=== PATIENT | female | born 1965 | race Hispanic/Latino ===

== ENCOUNTER 2018-05-30 15:42 | Inpatient (IN) | payer MEDICAID ==
--- NOTE | 2018-05-30 17:18 | C.PDOC ---
History Of Present Illness 53 year old female presents to the ER with a complaint of leg swelling and SOB with exertion for the past 3 months. Patient has not PMD and is not on any medications at this time. Denies chest pain, nausea, vomiting, or abdominal pain. Time Seen by Provider: 05/30/18 17:05 Chief Complaint (Nursing): Shortness Of Breath History Per: Patient History/Exam Limitations: no limitations Onset/Duration Of Symptoms: Days Current Symptoms Are (Timing): Still Present Exacerbating Factor(s): Exertion Associated Symptoms: denies: Chest Pain, Other (Nausea, vomiting) Recent travel outside of the [place]: No Past Medical History Reviewed: Historical Data, Nursing Documentation, Vital Signs Vital Signs: Last Vital Signs Temp 98 F 05/31/18 23:41 Pulse 93 H 05/31/18 23:41 Resp 20 05/31/18 23:41 BP 110/71 05/31/18 23:41 Pulse Ox 98 06/01/18 04:00 Surgical History: No Surg Hx Family History: States: Unknown Family Hx - Social History Hx Alcohol Use: Yes Hx Substance Use: No Review Of Systems Except As Marked, All Systems Reviewed And Found Negative. Respiratory: Positive for: Shortness of Breath, SOB with Excertion Physical Exam - Physical Exam Appears: Non-toxic Skin: Normal Color, Warm, Dry Head: Atraumatic, Normacephalic Eye(s): bilateral: Normal Inspection Oral Mucosa: Moist Neck: Normal, Supple Chest: Symmetrical, No Tenderness Cardiovascular: Rhythm Regular Respiratory: Decreased Breath Sounds, No Rales, No Rhonchi, No Wheezing Gastrointestinal/Abdominal: Soft, No Tenderness Extremity: Normal ROM (x4), Pedal Edema (+4 pitting), Capillary Refill (<2 seconds) Pulses: Left Dorsalis Pedis: Normal, Right Dorsalis Pedis: Normal Neurological/Psych: Oriented x3, Normal Speech, Normal Motor, Normal Sensation Gait: Steady ED Course And Treatment - Laboratory Results Result Diagrams: 05/31/18 07:12 05/31/18 07:10 O2 Sat by Pulse Oximetry: 90 (Room air) Medical Decision Making Medical Decision Making: Assessment: SOB Plan: * EKG * Blood work * CXR Case discussed with Dr. Shaw who will accept patient for admission to obs- telemetry. Disposition Discussed With : Kamar Shaw Doctor Will See Patient In The: Hospital Counseled Patient/Family Regarding: Studies Performed, Diagnosis - Disposition Disposition: HOSPITALIZED Disposition Time: 18:36 Condition: FAIR - Clinical Impression Clinical Impression: CHF (congestive heart failure) - Scribe Statement The provider has reviewed the documentation as recorded by the Scribe Catracho Dotson All medical record entries made by the Scribe were at my direction and personally dictated by me. I have reviewed the chart and agree that the record accurately reflects my personal performance of the history, physical exam, medical decision making, and the department course for this patient. I have also personally directed, reviewed, and agree with the discharge instructions and disposition.
--- NOTE | 2018-05-30 17:49 | RAD ---
Date of service: 05/30/2018 HISTORY: cough COMPARISON: No prior. TECHNIQUE: Chest PA and lateral FINDINGS: LUNGS: No active pulmonary disease. PLEURA: No significant pleural effusion identified. No pneumothorax apparent. CARDIOVASCULAR: Atherosclerotic aortic calcifications. Cardiomediastinal silhouette enlarged. OSSEOUS STRUCTURES: Degenerative changes. VISUALIZED UPPER ABDOMEN: Normal. OTHER FINDINGS: None. IMPRESSION: No active disease.
[2018-05-30 17:51] LABS: BASO # 0.1 K/uL (0.0-0.2); BASO % 0.6 % (0.0-2.0); EOS # 0.1 K/uL (0.0-0.7); EOS % 1.2 % (0.0-4.0); HEMOGLOBIN 10.2 g/dL (11.0-16.0); LYMPH # 1.7 K/uL (1.0-4.3); LYMPH % 18.5 % (20.0-40.0); MEAN CELL VOLUME 67.1 fL (81.0-99.0); MEAN CORPUSCULAR HGB CONC 28.3 g/dL (33.0-37.0); MEAN PLATELET VOLUME 8.9 fL (7.2-11.7); MONO % 11.1 % (0.0-10.0); NEUT # 6.3 K/uL (1.8-7.0); NEUT % 68.6 % (50.0-75.0); NRBC % 0.1 % (0.0-2.0); RBC 5.36 Mil/uL (3.80-5.20); RED CELL DISTRIBUTION WIDTH 23.1 % (11.5-14.5); WHITE BLOOD COUNT 9.1 K/uL (4.8-10.8)
[2018-05-30 18:08] LABS: ALB/GLOB RATIO 1.2 (1.0-2.1); ALBUMIN 3.6 g/dL (3.5-5.0); ALT/SGPT 31 U/L (9-52); AST/SGOT 34 U/L (14-36); BLOOD UREA NITROGEN 5 mg/dL (7-17); CALCIUM 8.7 mg/dl (8.6-10.4); GFR AFRICAN-AMERICAN > 60; GFR NON-AFRICAN AMERICAN > 60
[2018-05-30 18:14] LABS: B-TYPE NATRIURETIC PEPTIDE 4960 pg/mL (0-900)
[2018-05-30 18:27] VITALS: BMI 32.4
--- NOTE | 2018-05-30 19:07 | CP.PCM.HP ---
<Deedee Quintero - Last Filed: 05/31/18 00:28> History of Present Illness - History of Present Illness History of Present Illness: Medicine Note for Hospitalist Service CC: shortness of breath HPI: This is a 53 year old female with PMHx of Tobacco use and Alcohol use who presents to the ED with gradual, progressive shortness of breath, fatigue, and bilateral lower extremity swelling x 3-4 months. Patient reports she was able to ambulate without assistance or issues to [place] prior to the onset of her symptoms. She gradually noticed she became short of breath when ambulating more than 1 block, walking up 1/2 a flight of stairs, and when she exerts herself. She denied any orthopnea but admits she sleeps inclined or on her side and to daytime sleepiness and fatigue. Patient has not seen a doctor in > 10 years, no prior cardiac workup. Denied any associated fever, chills, headache, chest pain , abdominal pain, n/v/d/c, urinary symptoms, numbness, tingling, or decrease in sensation in upper or lower extremity swelling. PMD - None PMHx: none PSHx: Cesarian section x4 Meds: Denied All: NKDA SHx: (+) 30 year history, 1-2 packs/day, (+) 12 year history of 750mL vodka consumption daily, recently cut down to 1.5 pints per day, starts drinking at 4pm, denied any illicit drug use FamHx: Denied any cardiac, stroke, or malignancies HCM: Denied any recent cervical, breast (> 10 years) or colon cancer screening ( never) Present on Admission - Present on Admission Any Indicators Present on Admission: No Past Patient History - Past Social History Smoking Status: Heavy Smoker > 10 Cigarettes Daily - PSYCHIATRIC Hx Substance Use: No - SURGICAL HISTORY Hx Surgeries: No Meds Allergies/Adverse Reactions: Allergies Allergy/AdvReac Type Severity Reaction Status Date / Time No Known Allergies Allergy Verified 05/30/18 16:01 Physical Exam - Constitutional Appears: No Acute Distress - Head Exam Head Exam: ATRAUMATIC, NORMAL INSPECTION, NORMOCEPHALIC - Eye Exam Eye Exam: EOMI, Normal appearance, PERRL. absent: Nystagmus, Scleral icterus Pupil Exam: NORMAL ACCOMODATION - ENT Exam ENT Exam: Mucous Membranes Moist Additional comments: poor dentition - Neck Exam Neck exam: Positive for: Normal Inspection - Respiratory Exam Respiratory Exam: Decreased Breath Sounds, Wheezes (faint wheezing heard RLL ). absent: Accessory Muscle Use, Chest Wall Tenderness, Rales, Rhonchi, Stridor - Cardiovascular Exam Cardiovascular Exam: REGULAR RHYTHM, Systolic Murmur - GI/Abdominal Exam GI & Abdominal Exam: Normal Bowel Sounds, Soft. absent: Distended, Firm, Guarding, Mass, Organomegaly, Rebound, Tenderness Additional comments: no ascites noted on exam - Extremities Exam Extremities exam: Positive for: normal capillary refill, pedal edema (+1 pitting edema bilaterally up to directly below the knee ), pedal pulses present. Negative for: tenderness Additional comments: not TTP, not warm - Back Exam Back exam: NORMAL INSPECTION. absent: CVA tenderness (L), CVA tenderness (R), paraspinal tenderness - Neurological Exam Neurological exam: Alert, CN II-XII Intact, Oriented x3 - Psychiatric Exam Psychiatric exam: Normal Affect, Normal Mood - Skin Skin Exam: Dry, Intact, Normal Color, Warm Results - Vital Signs Recent Vital Signs: Last Vital Signs Temp 98.4 F 05/30/18 15:57 Pulse 102 H 05/30/18 18:29 Resp 26 H 05/30/18 18:29 BP 150/73 05/30/18 17:58 Pulse Ox 90 L 05/30/18 18:46 - Labs Result Diagrams: 05/30/18 17:43 05/30/18 17:43 Labs: Laboratory Results - last 24 hr 05/30/18 05/30/18 17:43 17:43 WBC 9.1 RBC 5.36 H Hgb 10.2 L Hct 35.9 MCV 67.1 L MCH 19.0 L MCHC 28.3 L RDW 23.1 H Plt Count 221 MPV 8.9 Neut % (Auto) 68.6 Lymph % (Auto) 18.5 L [place] % (Auto) 11.1 H Eos % (Auto) 1.2 Baso % (Auto) 0.6 Neut # (Auto) 6.3 Lymph # (Auto) 1.7 [place] # (Auto) 1.0 H Eos # (Auto) 0.1 Baso # (Auto) 0.1 Differential Comment Sodium 136 Potassium 4.5 Chloride 91 L Carbon Dioxide 38 H Anion Gap 11 BUN 5 L Creatinine 0.6 L Est GFR ( Amer) > 60 Est GFR (Non-Af Amer) > 60 Random Glucose 104 Calcium 8.7 Total Bilirubin 2.0 H AST 34 ALT 31 Alkaline Phosphatase 80 Troponin I 0.0140 NT-Pro-B Natriuret Pep 4960 H Total Protein 6.5 Albumin 3.6 Globulin 2.9 Albumin/Globulin Ratio 1.2 Assessment & Plan - Assessment and Plan (Free Text) Plan: New Onset HF - Cardiology consulted - Dr. Brian -help appreciated - On exam, no JVD noted, no rales noted, bilateral lower extremity swelling +1 pitting edema up to knees (not TTP or warm) - BNP 4960 - CXR: cardiomegaly noted, no effusions noted - ECHO ordered - Started on ASA, Lisinopril, will initiate BB after exacerbation resolves, Lasix - I &Os, daily weight, fluid restriction, HHD with fluid and salt restriction Tachycardia - Low 100s, sinus tachycardia on EKG - Risk factor for PE: smoking hx, recently ambulating less, denied recent travel - D- dimer ordered, if elevated will order CTA to rule out PE COPD - 1-2 PPD / 30 years - Decreased breath sounds on exam, faint wheezing RLL - Hypercapneic on ABG - expected CO2 retention - Duonebs Q6H Iron Deficiency Anemia - Iron panel ordered - Ferrlecit daily started Alcohol Use Disorder - Cessation encouraged - Seizure, Aspiration precautions - MV, thiamine, folic daily - Ativan PRN Tobacco Use Disorder - Smoking Cessation encouraged - Nicotine patch daily Prophylactic Measures - GI PPX: Protonix - DVT PPX: Heparin Q12, SCDs C/I 2/2 BL LE swelling - PT/ OT DW Deedee De La Rosa DO, PGY-2 <Justino Mcarthur - Last Filed: 05/31/18 06:24> Results - Vital Signs Recent Vital Signs: Last Vital Signs Temp 98.1 F 05/31/18 00:39 Pulse 101 H 05/31/18 02:39 Resp 20 05/31/18 00:39 BP 124/93 H 05/31/18 00:39 Pulse Ox 96 05/31/18 02:39 - Labs Result Diagrams: 05/30/18 17:43 05/30/18 17:43 Labs: Laboratory Results - last 24 hr 07/05/30/18 05/30/18 17:43 17:43 19:16 WBC 9.1 RBC 5.36 H Hgb 10.2 L Hct 35.9 MCV 67.1 L MCH 19.0 L MCHC 28.3 L RDW 23.1 H Plt Count 221 MPV 8.9 Neut % (Auto) 68.6 Lymph % (Auto) 18.5 L [place] % (Auto) 11.1 H Eos % (Auto) 1.2 Baso % (Auto) 0.6 Neut # (Auto) 6.3 Lymph # (Auto) 1.7 [place] # (Auto) 1.0 H Eos # (Auto) 0.1 Baso # (Auto) 0.1 Differential Comment Retic Count D-Dimer, Quantitative Puncture Site pCO2 pO2 HCO3 ABG pH ABG Total CO2 ABG O2 Saturation ABG Base Excess Selvin Test ABG Potassium A-a O2 Difference Respiratory Index Glucose Lactate Liter Flow FiO2 Sodium 136 Potassium 4.5 Chloride 91 L Carbon Dioxide 38 H Anion Gap 11 BUN 5 L Creatinine 0.6 L Est GFR ( Amer) > 60 Est GFR (Non-Af Amer) > 60 Random Glucose 104 Hemoglobin A1c 5.0 Calcium 8.7 Iron TIBC % Saturation Ferritin Total Bilirubin 2.0 H AST 34 ALT 31 Alkaline Phosphatase 80 Total Creatine Kinase CK-MB (Mass) Troponin I 0.0140 NT-Pro-B Natriuret Pep 4960 H Total Protein 6.5 Albumin 3.6 Globulin 2.9 Albumin/Globulin Ratio 1.2 Triglycerides Cholesterol LDL Cholesterol Direct HDL Cholesterol Thyroxine (T4) TSH 3rd Generation 1.15 Arterial Blood Potassium 05/30/18 05/30/18 05/30/18 19:17 20:12 20:31 WBC RBC Hgb Hct MCV MCH MCHC RDW Plt Count MPV Neut % (Auto) Lymph % (Auto) [place] % (Auto) Eos % (Auto) Baso % (Auto) Neut # (Auto) Lymph # (Auto) [place] # (Auto) Eos # (Auto) Baso # (Auto) Differential Comment Retic Count D-Dimer, Quantitative Puncture Site Rba pCO2 55 H pO2 50 L HCO3 35.4 H ABG pH 7.47 H ABG Total CO2 41.7 H ABG O2 Saturation 92.2 L ABG Base Excess 13.8 H Selvin Test Na ABG Potassium 3.4 L A-a O2 Difference 31.0 Respiratory Index 0.6 Glucose 97 Lactate 1.1 Liter Flow 0 FiO2 21.0 Sodium 136.0 Potassium Chloride 97.0 L Carbon Dioxide Anion Gap BUN Creatinine Est GFR ( Amer) Est GFR (Non-Af Amer) Random Glucose Hemoglobin A1c Calcium Iron 20 L TIBC 463 H % Saturation 4 L Ferritin Total Bilirubin AST ALT Alkaline Phosphatase Total Creatine Kinase CK-MB (Mass) Troponin I NT-Pro-B Natriuret Pep Total Protein Albumin Globulin Albumin/Globulin Ratio Triglycerides 66 Cholesterol 82 LDL Cholesterol Direct 50 HDL Cholesterol 17 L Thyroxine (T4) 15.0 H TSH 3rd Generation Arterial Blood Potassium 3.4 L 05/30/18 05/30/18 05/30/18 20:31 21:10 21:10 WBC RBC Hgb Hct MCV MCH MCHC RDW Plt Count MPV Neut % (Auto) Lymph % (Auto) [place] % (Auto) Eos % (Auto) Baso % (Auto) Neut # (Auto) Lymph # (Auto) [place] # (Auto) Eos # (Auto) Baso # (Auto) Differential Comment Retic Count 4.8 H D-Dimer, Quantitative Puncture Site pCO2 pO2 HCO3 ABG pH ABG Total CO2 ABG O2 Saturation ABG Base Excess Selvin Test ABG Potassium A-a O2 Difference Respiratory Index Glucose Lactate Liter Flow FiO2 Sodium Potassium Chloride Carbon Dioxide Anion Gap BUN Creatinine Est GFR ( Amer) Est GFR (Non-Af Amer) Random Glucose Hemoglobin A1c Calcium Iron TIBC % Saturation 5 L Ferritin 5.4 Total Bilirubin AST ALT Alkaline Phosphatase Total Creatine Kinase CK-MB (Mass) Troponin I NT-Pro-B Natriuret Pep Total Protein Albumin Globulin Albumin/Globulin Ratio Triglycerides Cholesterol LDL Cholesterol Direct HDL Cholesterol Thyroxine (T4) TSH 3rd Generation Arterial Blood Potassium 05/31/18 05/31/18 01:25 01:25 WBC RBC Hgb Hct MCV MCH MCHC RDW Plt Count MPV Neut % (Auto) Lymph % (Auto) [place] % (Auto) Eos % (Auto) Baso % (Auto) Neut # (Auto) Lymph # (Auto) [place] # (Auto) Eos # (Auto) Baso # (Auto) Differential Comment Retic Count D-Dimer, Quantitative 408 H Puncture Site pCO2 pO2 HCO3 ABG pH ABG Total CO2 ABG O2 Saturation ABG Base Excess Selvin Test ABG Potassium A-a O2 Difference Respiratory Index Glucose Lactate Liter Flow FiO2 Sodium Potassium Chloride Carbon Dioxide Anion Gap BUN Creatinine Est GFR ( Amer) Est GFR (Non-Af Amer) Random Glucose Hemoglobin A1c Calcium Iron TIBC % Saturation Ferritin Total Bilirubin AST ALT Alkaline Phosphatase Total Creatine Kinase < 20 L CK-MB (Mass) 0.88 Troponin I 0.0140 NT-Pro-B Natriuret Pep Total Protein Albumin Globulin Albumin/Globulin Ratio Triglycerides Cholesterol LDL Cholesterol Direct HDL Cholesterol Thyroxine (T4) TSH 3rd Generation Arterial Blood Potassium Assessment & Plan - Date & Time Date: 05/31/18 (I have seen and examined the patient. I agree with the findings and plan of care as documented by Dr. Quintero. Patient with new onset CHF. ROMIx3 with EKG. 2D Echo. Consult to Cardio. Lasix as needed. Tachycardia. SOB. Check d-dimer. History of COPD. Oxygen as needed. Continue home meds. Monitor for acute changes.) Time: 06:23 Attending/Attestation - Attestation I have personally seen and examined this patient.: Yes I have fully participated in the care of the patient.: Yes I have reviewed all pertinent clinical information: Yes
[2018-05-30 20:17] LABS: ARTERIAL BLOOD GAS HCO3 35.4 mmol/L (21-28); ARTERIAL BLOOD GAS O2 SAT 92.2 % (95-98); ARTERIAL BLOOD GAS PCO2 55 mm/Hg (35-45); ARTERIAL BLOOD GAS PH 7.47 (7.35-7.45); ARTERIAL BLOOD GAS PO2 50 mm/Hg (80-100); ARTERIAL BLOOD GAS TCO2 41.7 mmol/L (22-28)
[2018-05-30 20:46] LABS: IRON 20 ug/dL (37-170)
[2018-05-30 20:55] LABS: % IRON SATURATION 4 (20-55); TOTAL IRON BINDING CAPACITY 463 ug/dL (250-450)
[2018-05-31 01:59] LABS: CK-MB 0.88 ng/mL (0.0-3.38)
[2018-05-31] MEDS ORDERED: Albuterol-Ipratrop 3 mg / 0.5 (3 ml) UD INH SCH (02:00)
[2018-05-31] MEDS ORDERED: Iodixanol 320 MG/ML 100 ML BOTTLE IV ONE (02:36)
[2018-05-31 07:43] LABS: BASO # 0.1 K/uL (0.0-0.2); BASO % 0.7 % (0.0-2.0); EOS # 0.1 K/uL (0.0-0.7); EOS % 1.6 % (0.0-4.0); HEMOGLOBIN 9.4 g/dL (11.0-16.0); LYMPH # 1.7 K/uL (1.0-4.3); LYMPH % 21.8 % (20.0-40.0); MEAN CELL VOLUME 67.6 fL (81.0-99.0); MEAN CORPUSCULAR HEMOGLOBIN 19.4 pg (27.0-31.0); MEAN CORPUSCULAR HGB CONC 28.8 g/dL (33.0-37.0); MONO # 0.8 K/uL (0.0-0.8); MONO % 10.8 % (0.0-10.0); NEUT # 5.1 K/uL (1.8-7.0); NEUT % 65.1 % (50.0-75.0); NRBC % 0.3 % (0.0-2.0); RBC 4.84 Mil/uL (3.80-5.20); RED CELL DISTRIBUTION WIDTH 22.2 % (11.5-14.5); WHITE BLOOD COUNT 7.8 K/uL (4.8-10.8)
[2018-05-31 08:50] LABS: B-TYPE NATRIURETIC PEPTIDE 3810 pg/mL (0-900)
[2018-05-31 09:00] LABS: ALB/GLOB RATIO 1.1 (1.0-2.1); ALT/SGPT 21 U/L (9-52); AST/SGOT 25 U/L (14-36); BLOOD UREA NITROGEN 4 mg/dL (7-17); CALCIUM 8.2 mg/dl (8.6-10.4); GFR AFRICAN-AMERICAN > 60; GFR NON-AFRICAN AMERICAN > 60
--- NOTE | 2018-05-31 09:50 | CP.PCM.CON ---
History of Present Illness - History of Present Illness History of Present Illness: Consultation for new onset CHF and POZO HPI: Review of Systems - Review of Systems Systems not reviewed;Unavailable: Acuity of Condition - Constitutional Constitutional: As Per HPI - EENT Eyes: As Per HPI Ears: As Per HPI Nose/Mouth/Throat: As Per HPI - Breasts Breasts: As Per HPI - Cardiovascular Cardiovascular: As Per HPI - Respiratory Respiratory: As Per HPI - Gastrointestinal Gastrointestinal: As Per HPI - Genitourinary Genitourinary: As Per HPI - Reproductive: Female Reproductive:Female: As Per HPI - Menstruation Menstruation: As Per HPI - Musculoskeletal Musculoskeletal: As Per HPI - Integumentary Integumentary: As Per HPI - Neurological Neurological: As Per HPI - Psychiatric Psychiatric: As Per HPI - Endocrine Endocrine: As Per HPI - Hematologic/Lymphatic Hematologic: As Per HPI Past Patient History - Past Social History Smoking Status: Heavy Smoker > 10 Cigarettes Daily - MUSCULOSKELETAL/RHEUMATOLOGICAL Hx Falls: No - PSYCHIATRIC Hx Substance Use: No - SURGICAL HISTORY Hx Surgeries: No Meds Allergies/Adverse Reactions: Allergies Allergy/AdvReac Type Severity Reaction Status Date / Time No Known Allergies Allergy Verified 05/30/18 16:01 - Medications Medications: Current Medications Albuterol/Ipratropium (Duoneb 3 Mg/0.5 Mg (3 Ml) Ud) 3 ml INH RQ6 [facility] Last Admin: 05/31/18 07:36 Dose: 3 ml Aspirin (Aspirin Chewable) 81 mg PO DAILY [facility] Carvedilol (Coreg) 3.125 mg PO BID [facility] Ferric Sodium Gluconate Complex (Ferrlecit) 125 mg IVPB DAILY [facility] Stop: 06/04/18 10:01 Folic Acid (Folic Acid) 1 mg PO DAILY [facility] Furosemide (Lasix) 40 mg IVP DAILY [facility] Heparin Sodium (Porcine) (Heparin) 5,000 units SC Q12 [facility] Last Admin: 05/30/18 23:16 Dose: 5,000 units Lisinopril (Zestril) 2.5 mg PO DAILY [facility] Lorazepam (Ativan) 1 mg IVP Q6H PRN PRN Reason: Symptoms of alcohol withdrawl Multivitamins (Hexavitamin) 1 tab PO DAILY [facility] Nicotine (Nicoderm Cq) 1 patch TD DAILY [facility] Pantoprazole Sodium (Protonix Ec Tab) 40 mg PO DAILY [facility] Pneumococcal Polyvalent Vaccine (Pneumovax 23 Vaccine) 0.5 ml IM .ONCE ONE Stop: 06/02/18 10:01 Thiamine HCl (Vitamin B1 Tab) 100 mg PO DAILY [facility] Physical Exam - Constitutional Appears: Well - Head Exam Head Exam: ATRAUMATIC, NORMAL INSPECTION, NORMOCEPHALIC - Eye Exam Eye Exam: EOMI, Normal appearance, PERRL Pupil Exam: NORMAL ACCOMODATION, PERRL - ENT Exam ENT Exam: Mucous Membranes Moist, Normal Exam - Neck Exam Neck exam: Positive for: Normal Inspection - Respiratory Exam Respiratory Exam: Clear to Auscultation Bilateral, NORMAL BREATHING PATTERN - Cardiovascular Exam Cardiovascular Exam: REGULAR RHYTHM, RRR, +S1, +S2, Systolic Murmur - GI/Abdominal Exam GI & Abdominal Exam: Normal Bowel Sounds, Soft. absent: Tenderness - Extremities Exam Extremities exam: Positive for: normal inspection - Back Exam Back exam: NORMAL INSPECTION - Neurological Exam Neurological exam: Alert, CN II-XII Intact, Normal Gait, Oriented x3, Reflexes Normal - Psychiatric Exam Psychiatric exam: Normal Affect, Normal Mood - Skin Skin Exam: Dry, Intact, Normal Color, Warm Results - Vital Signs Recent Vital Signs: Last Vital Signs Temp 98.6 F 05/31/18 07:00 Pulse 91 H 05/31/18 07:45 Resp 20 05/31/18 07:00 BP 125/74 05/31/18 07:00 Pulse Ox 96 05/31/18 07:45 - Labs Result Diagrams: 05/31/18 07:12 05/31/18 07:10 Labs: Laboratory Results - last 24 hr 05/30/18 05/30/18 05/30/18 17:43 17:43 19:16 WBC 9.1 RBC 5.36 H Hgb 10.2 L Hct 35.9 MCV 67.1 L MCH 19.0 L MCHC 28.3 L RDW 23.1 H Plt Count 221 MPV 8.9 Neut % (Auto) 68.6 Lymph % (Auto) 18.5 L [place] % (Auto) 11.1 H Eos % (Auto) 1.2 Baso % (Auto) 0.6 Neut # (Auto) 6.3 Lymph # (Auto) 1.7 [place] # (Auto) 1.0 H Eos # (Auto) 0.1 Baso # (Auto) 0.1 Differential Comment Retic Count D-Dimer, Quantitative Puncture Site pCO2 pO2 HCO3 ABG pH ABG Total CO2 ABG O2 Saturation ABG Base Excess Selvin Test ABG Potassium A-a O2 Difference Respiratory Index Glucose Lactate Liter Flow FiO2 Sodium 136 Potassium 4.5 Chloride 91 L Carbon Dioxide 38 H Anion Gap 11 BUN 5 L Creatinine 0.6 L Est GFR ( Amer) > 60 Est GFR (Non-Af Amer) > 60 Random Glucose 104 Hemoglobin A1c 5.0 Calcium 8.7 Phosphorus Magnesium Iron TIBC % Saturation Ferritin Total Bilirubin 2.0 H AST 34 ALT 31 Alkaline Phosphatase 80 Total Creatine Kinase CK-MB (Mass) Troponin I 0.0140 NT-Pro-B Natriuret Pep 4960 H Total Protein 6.5 Albumin 3.6 Globulin 2.9 Albumin/Globulin Ratio 1.2 Triglycerides Cholesterol LDL Cholesterol Direct HDL Cholesterol Thyroxine (T4) TSH 3rd Generation 1.15 Arterial Blood Potassium 05/30/18 05/30/18 05/30/18 19:17 20:12 20:31 WBC RBC Hgb Hct MCV MCH MCHC RDW Plt Count MPV Neut % (Auto) Lymph % (Auto) [place] % (Auto) Eos % (Auto) Baso % (Auto) Neut # (Auto) Lymph # (Auto) [place] # (Auto) Eos # (Auto) Baso # (Auto) Differential Comment Retic Count D-Dimer, Quantitative Puncture Site Rba pCO2 55 H pO2 50 L HCO3 35.4 H ABG pH 7.47 H ABG Total CO2 41.7 H ABG O2 Saturation 92.2 L ABG Base Excess 13.8 H Selvin Test Na ABG Potassium 3.4 L A-a O2 Difference 31.0 Respiratory Index 0.6 Glucose 97 Lactate 1.1 Liter Flow 0 FiO2 21.0 Sodium 136.0 Potassium Chloride 97.0 L Carbon Dioxide Anion Gap BUN Creatinine Est GFR ( Amer) Est GFR (Non-Af Amer) Random Glucose Hemoglobin A1c Calcium Phosphorus Magnesium Iron 20 L TIBC 463 H % Saturation 4 L Ferritin Total Bilirubin AST ALT Alkaline Phosphatase Total Creatine Kinase CK-MB (Mass) Troponin I NT-Pro-B Natriuret Pep Total Protein Albumin Globulin Albumin/Globulin Ratio Triglycerides 66 Cholesterol 82 LDL Cholesterol Direct 50 HDL Cholesterol 17 L Thyroxine (T4) 15.0 H TSH 3rd Generation Arterial Blood Potassium 3.4 L 05/30/18 05/30/18 05/30/18 20:31 21:10 21:10 WBC RBC Hgb Hct MCV MCH MCHC RDW Plt Count MPV Neut % (Auto) Lymph % (Auto) [place] % (Auto) Eos % (Auto) Baso % (Auto) Neut # (Auto) Lymph # (Auto) [place] # (Auto) Eos # (Auto) Baso # (Auto) Differential Comment Retic Count 4.8 H D-Dimer, Quantitative Puncture Site pCO2 pO2 HCO3 ABG pH ABG Total CO2 ABG O2 Saturation ABG Base Excess Selvin Test ABG Potassium A-a O2 Difference Respiratory Index Glucose Lactate Liter Flow FiO2 Sodium Potassium Chloride Carbon Dioxide Anion Gap BUN Creatinine Est GFR ( Amer) Est GFR (Non-Af Amer) Random Glucose Hemoglobin A1c Calcium Phosphorus Magnesium Iron TIBC % Saturation 5 L Ferritin 5.4 Total Bilirubin AST ALT Alkaline Phosphatase Total Creatine Kinase CK-MB (Mass) Troponin I NT-Pro-B Natriuret Pep Total Protein Albumin Globulin Albumin/Globulin Ratio Triglycerides Cholesterol LDL Cholesterol Direct HDL Cholesterol Thyroxine (T4) TSH 3rd Generation Arterial Blood Potassium 05/31/18 05/31/18 05/31/18 01:25 01:25 07:10 WBC RBC Hgb Hct MCV MCH MCHC RDW Plt Count MPV Neut % (Auto) Lymph % (Auto) [place] % (Auto) Eos % (Auto) Baso % (Auto) Neut # (Auto) Lymph # (Auto) [place] # (Auto) Eos # (Auto) Baso # (Auto) Differential Comment Retic Count D-Dimer, Quantitative 408 H Puncture Site pCO2 pO2 HCO3 ABG pH ABG Total CO2 ABG O2 Saturation ABG Base Excess Selvin Test ABG Potassium A-a O2 Difference Respiratory Index Glucose Lactate Liter Flow FiO2 Sodium 139 Potassium 3.5 L Chloride 92 L Carbon Dioxide 37 H Anion Gap 14 BUN 4 L Creatinine 0.6 L Est GFR ( Amer) > 60 Est GFR (Non-Af Amer) > 60 Random Glucose 97 Hemoglobin A1c Calcium 8.2 L Phosphorus 5.1 H Magnesium 1.5 L Iron TIBC % Saturation Ferritin Total Bilirubin 1.7 H AST 25 ALT 21 Alkaline Phosphatase 63 Total Creatine Kinase < 20 L CK-MB (Mass) 0.88 Troponin I 0.0140 NT-Pro-B Natriuret Pep 3810 H Total Protein 5.8 L Albumin 3.0 L Globulin 2.8 Albumin/Globulin Ratio 1.1 Triglycerides Cholesterol LDL Cholesterol Direct HDL Cholesterol Thyroxine (T4) TSH 3rd Generation Arterial Blood Potassium 05/31/18 07:12 WBC 7.8 RBC 4.84 Hgb 9.4 L Hct 32.7 L MCV 67.6 L MCH 19.4 L MCHC 28.8 L RDW 22.2 H Plt Count 206 MPV 9.0 Neut % (Auto) 65.1 Lymph % (Auto) 21.8 [place] % (Auto) 10.8 H Eos % (Auto) 1.6 Baso % (Auto) 0.7 Neut # (Auto) 5.1 Lymph # (Auto) 1.7 [place] # (Auto) 0.8 Eos # (Auto) 0.1 Baso # (Auto) 0.1 Differential Comment Retic Count D-Dimer, Quantitative Puncture Site pCO2 pO2 HCO3 ABG pH ABG Total CO2 ABG O2 Saturation ABG Base Excess Selvin Test ABG Potassium A-a O2 Difference Respiratory Index Glucose Lactate Liter Flow FiO2 Sodium Potassium Chloride Carbon Dioxide Anion Gap BUN Creatinine Est GFR ( Amer) Est GFR (Non-Af Amer) Random Glucose Hemoglobin A1c Calcium Phosphorus Magnesium Iron TIBC % Saturation Ferritin Total Bilirubin AST ALT Alkaline Phosphatase Total Creatine Kinase CK-MB (Mass) Troponin I NT-Pro-B Natriuret Pep Total Protein Albumin Globulin Albumin/Globulin Ratio Triglycerides Cholesterol LDL Cholesterol Direct HDL Cholesterol Thyroxine (T4) TSH 3rd Generation Arterial Blood Potassium Assessment & Plan (1) CHF (congestive heart failure) Assessment and Plan: cont with Bb, acei cont asa echo lasix Status: Acute (2) Pedal edema Status: Acute
[2018-05-31] MEDS: Pantoprazole 40 mg EC Tab PO SCH (10:09)
[2018-05-31] MEDS: Multiple Vitamins Tab PO SCH (10:10)
[2018-05-31] MEDS: Ferric Sodium Gluconat Complex 62.5 mg/5 ml Vial IVPB SCH (10:10)
[2018-05-31 11:30] LABS: CK-MB 0.82 ng/mL (0.0-3.38); TROPONIN I 0.013 ng/mL (0.00-0.120)
--- NOTE | 2018-05-31 12:40 | CT ---
Date of service: 05/31/2018 PROCEDURE: CT Chest with contrast (Pulmonary Angiogram) HISTORY: tachycardia, smoking hx, new onset HF COMPARISON: None available. TECHNIQUE: Axial computed tomography images were obtained of the chest in the pulmonary arterial phase of enhancement. Coronal and sagittal reformatted images were created and reviewed. Intravenous contrast dose: 100 mL Visipaque 320 Radiation dose: Total exam DLP = 403.7 mGy-cm. This CT exam was performed using one or more of the following dose reduction techniques: Automated exposure control, adjustment of the mA and/or kV according to patient size, and/or use of iterative reconstruction technique. FINDINGS: PULMONARY ARTERIES: Dilated main pulmonary artery measuring up to 3.8 cm. No pulmonary embolism. AORTA: No acute findings. Calcific atherosclerosis. No thoracic aortic aneurysm. LUNGS: Scattered mild centrilobular emphysema in an upper lobe distribution. No nodule, mass or pulmonary consolidation. PLEURAL SPACES: Unremarkable. No effusion or pneumothorax. HEART: Unremarkable. No cardiomegaly. No significant pericardial effusion. LYMPH NODES: No lymphadenopathy. BONES, CHEST WALL: No acute fracture or destructive lesion. Multiple old left-sided rib fractures. OTHER FINDINGS: Nodular hepatic contour with multiple too small to characterize hepatic hypodensities. IMPRESSION: Unremarkable CT pulmonary angiogram. No pulmonary embolus. Dilated main pulmonary artery likely representing pulmonary hypertension. Nodular contour of the liver likely reflecting cirrhosis. Both upper pole too small to characterize hypodensities scattered throughout the liver.
[2018-05-31] MEDS: Albuterol-Ipratrop 3 mg / 0.5 (3 ml) UD INH SCH ×4 (13:09→23:44)
--- NOTE | 2018-05-31 13:14 | CP.PCM.PN ---
<Whitley Watkins P - Last Filed: 06/01/18 01:37> Subjective - Date & Time of Evaluation Date of Evaluation: 05/31/18 Time of Evaluation: 09:00 - Subjective Subjective: PGY-[address] Clay. Patient seen and examined at bedside. Patient sitting in bed. SpO2 on RA at the time of exam was 79% and 89% on 2L NC. Denies shortness of breath presently, states she is only short of breath on exertion. She is eating and and having bowel movements. Denies chest pain, fever, chills, cough, nausea, vomiting, abdominal pain. Objective - Vital Signs/Intake and Output Vital Signs (last 24 hours): Temp Pulse Resp BP Pulse Ox 98.6 F 100 H 20 104/63 96 05/31/18 07:00 05/31/18 12:00 05/31/18 07:00 05/31/18 10:08 05/31/18 07:45 Intake and Output: 05/31/18 05/31/18 06:59 18:59 Intake Total 200 Balance 200 - Medications Medications: Current Medications Albuterol/Ipratropium (Duoneb 3 Mg/0.5 Mg (3 Ml) Ud) 3 ml INH Q4 [facility] Last Admin: 05/31/18 13:09 Dose: 3 ml Aspirin (Aspirin Chewable) 81 mg PO DAILY [facility] Last Admin: 05/31/18 10:09 Dose: 81 mg Carvedilol (Coreg) 3.125 mg PO BID [facility] Ferric Sodium Gluconate Complex (Ferrlecit) 125 mg IVPB DAILY [facility] Stop: 06/04/18 10:01 Last Admin: 05/31/18 10:10 Dose: 125 mg Folic Acid (Folic Acid) 1 mg PO DAILY [facility] Last Admin: 05/31/18 10:10 Dose: 1 mg Furosemide (Lasix) 40 mg IVP DAILY [facility] Last Admin: 05/31/18 10:08 Dose: 40 mg Heparin Sodium (Porcine) (Heparin) 5,000 units SC Q12 [facility] Last Admin: 05/31/18 10:09 Dose: 5,000 units Lisinopril (Zestril) 2.5 mg PO DAILY [facility] Multivitamins (Hexavitamin) 1 tab PO DAILY [facility] Last Admin: 05/31/18 10:10 Dose: 1 tab Nicotine (Nicoderm Cq) 1 patch TD DAILY [facility] Last Admin: 05/31/18 10:09 Dose: 1 patch Pantoprazole Sodium (Protonix Ec Tab) 40 mg PO DAILY [facility] Last Admin: 05/31/18 10:09 Dose: 40 mg Thiamine HCl (Vitamin B1 Tab) 100 mg PO DAILY [facility] - Labs Labs: 05/31/18 07:12 05/31/18 07:10 - Constitutional Appears: Other (looks uncomfortable, but denies shortness of breath) - Head Exam Head Exam: ATRAUMATIC, NORMOCEPHALIC - Eye Exam Eye Exam: EOMI, PERRL - ENT Exam ENT Exam: Mucous Membranes Moist - Respiratory Exam Respiratory Exam: Decreased Breath Sounds, Clear to Ausculation Bilateral. absent: Accessory Muscle Use, Rales, Rhonchi, Wheezes - Cardiovascular Exam Cardiovascular Exam: REGULAR RHYTHM, +S1, +S2 - GI/Abdominal Exam GI & Abdominal Exam: Firm, Guarding, Soft, Normal Bowel Sounds. absent: Tenderness - Extremities Exam Extremities Exam: Pedal Edema (3+ pitting edema bilaterally). absent: Tenderness - Neurological Exam Neurological Exam: Alert, Awake - Psychiatric Exam Psychiatric exam: Normal Mood - Skin Skin Exam: Dry, Intact, Warm Assessment and Plan - Assessment and Plan (Free Text) Plan: New Onset HF - Cardiology consulted - Dr. Brian -help appreciated: continue BB, ACEi, ASA, lasix and f/u echo. - On exam, no JVD noted, no rales noted, bilateral lower extremity swelling +1 pitting edema up to knees (not TTP or warm) - BNP 4960 - CXR: cardiomegaly noted, no effusions noted - ECHO- LVEF 56%. normal LV systolic function. Diastolic dysfunction. mild TR. Normal chamber size. (see full report) -CTA- No pulmonary embolus. Dilated main pulmonary artery likely pulmonary hypertension. Nodular contour of liver likely reflecting cirrhosis. Both upper pole too small to characterize hypodensities scattered throughout the liver ( see full report) - Started on ASA, Lisinopril, carvedilol, Lasix - I &Os, daily weight, fluid restriction, HHD with fluid and salt restriction -05/31: wt 188 lbs, 200mL oral input Tachycardia - Low 100s, sinus tachycardia on EKG - Risk factor for PE: smoking hx, recently ambulating less, denied recent travel - D-dimer: 408 -CTA- No pulmonary embolus. Dilated main pulmonary artery likely pulmonary hypertension. Nodular contour of liver likely reflecting cirrhosis. Both upper pole too small to characterize hypodensities scattered throughout the liver ( see full report) Venous doppler- no abnormal findings bilaterally COPD - 1-2 PPD / 30 years - Hypercapneic on ABG - expected CO2 retention - Duonebs Q4H -2L NC -Dr. Orozco, pulmonology consulted, Help appreciated. Iron Deficiency Anemia - Iron panel: iron 20, TIBC 463, %sat 5, ferritin 5.4 - Ferrlecit daily started Alcohol Use Disorder - Cessation encouraged - Aspiration precautions - MV, thiamine, folic daily Tobacco Use Disorder - Smoking Cessation encouraged - Nicotine patch daily Prophylactic Measures - GI PPX: Protonix - DVT PPX: Heparin Q12, SCDs C/I 2/2 BL LE swelling - PT/ OT CTA- negative for PE. Dopplers negative. Echo: LVEF 56%. normal systolic function, + diastolic dysfunction. Will follow up Dr. Orozco recs now that echo has resulted. <Karley Clay V - Last Filed: 06/05/18 21:03> Objective - Vital Signs/Intake and Output Vital Signs (last 24 hours): Temp Pulse Resp BP Pulse Ox 98.2 F 67 20 128/71 96 06/04/18 07:24 06/04/18 08:17 06/04/18 07:24 06/04/18 09:26 06/04/18 07:24 - Labs Labs: 06/04/18 08:02 06/04/18 08:02 Attending/Attestation - Attestation I have personally seen and examined this patient.: Yes I have fully participated in the care of the patient.: Yes I have reviewed all pertinent clinical information, including history, physical exam and plan: Yes Notes (Text): This is late computer entry for 05/31/18. Patient seen, examined and case discussed with day-time resident. Patient reports dyspnea on exertion, chronic shortness of breathe, and swelling over the bilateral lower extremities. She reports she has not seen a primary care doctor in many years. Patient noted on ABG for respiratory alkalosis and noted to be hypoxic. I have placed her on nasal cannula which is currently on her to improve her oxygenation status. Patient to undergo CT Chest to rule out pulmonary embolus. We will consult pulmonary for further recommendations in light of hypoxia and dyspnea on exertion. Cardiology on board given suspicion for possible new onset congestive heart failure. Continue BB, ACEi, ASA, lasix and f/u echo. Assessment/Plan 1) Possible Acute Congestive Heart Failure Exacerbation Assessment/Plan * Monitor on telemetry * Cardiology consulted - Dr. Brian on consult-->help appreciated * continue BB, ACEi, ASA, lasix and f/u echo. * On exam, no JVD noted, no rales noted, decreased breathe sounds, bilateral lower extremity swelling +1 pitting edema up to knees * BNP 4960 * CXR: cardiomegaly noted, no effusions noted * ECHO- LVEF 56%. normal LV systolic function. Diastolic dysfunction. mild TR. Normal chamber size. (see full report) * CTA- No pulmonary embolus. Dilated main pulmonary artery likely pulmonary hypertension. Nodular contour of liver likely reflecting cirrhosis. Both upper pole too small to characterize hypodensities scattered throughout the liver ( see full report) * Aspirin 81mg PO daily * Coreg 3.125mg PO BID * Lasix 40mg IV q daily * Lisinopril 2.5mg PO daily * Intake and output * Monitor daily weights * Fluid restriction 2) Sinus Tachycardia Assessment/Plan * Low 100s, sinus tachycardia on EKG * Risk factor for PE: smoking hx, edema * D-dimer: elevated * CTA- No pulmonary embolus. Dilated main pulmonary artery likely pulmonary hypertension. Nodular contour of liver likely reflecting cirrhosis. Both upper pole too small to characterize hypodensities scattered throughout the liver ( see full report) * Venous doppler b/l lateral 3) Suspected COPD Assessment/Plan * Pulmonary (Dr. Orozco) on consult-->help appreciated * 1-2 PPD / 30 years * Decreased breath sounds on exam, faint wheezing RLL * Hypercapneic on ABG - expected CO2 retention * Duonebs Q6H * Nasal cannula oxygen 2L 4) Iron Deficiency Anemia Assessment/Plan * Iron panel: iron 20, TIBC 463, %sat 5, ferritin 5.4 * Reticulocyte count: 4.8 * Reticulocyte index: 0.56 5) Alcohol Use Disorder Assessment/Plan * Cessation encouraged * Seizure, Aspiration precautions * MVI 1 tab PO daily * Thiamine 100mg PO daily * Folic daily 1 mg PO daily * Ativan PRN 6) Tobacco Use Disorder Assessment/Plan * Smoking Cessation encouraged * Nicotine patch daily 7) Prophylactic Measures * GI PPX: Protonix 40mg PO daily * DVT PPX: Heparin 5000 units Q12, SCDs C/I 2/2 BL LE swelling * PT/ OT eval
[2018-05-31] MEDS: Magnesium Sulfate 1 gm in D5W 1 GM/100 ML BAG IVPB SCH ×2 (13:29→14:03)
[2018-05-31] MEDS ORDERED: Potassium Chloride 20 mEq ER Tab PO ONE (13:30)
--- NOTE | 2018-05-31 17:33 | CARD ---
APPROVED REPORT Date of service: 05/31/2018 EXAM: Two-dimensional and M-mode echocardiogram with Doppler and color Doppler. INDICATION Dyspnea Congestive Heart Failure COPD 2D DIMENSIONS IVSd1.3 (0.7-1.1cm)LVDd5.0 (3.9-5.9cm) PWd1.1 (0.7-1.1cm)LVDs3.5 (2.5-4.0cm) FS (%) 29.5 %LVEF (%)56.2 (>50%) M-Mode DIMENSIONS Left Atrium (MM)3.99 (2.5-4.0cm)IVSd0.94 (0.7-1.1cm) Aortic Root3.15 (2.2-3.7cm)LVDd5.66 (4.0-5.6cm) Aortic Cusp Exc.2.25 (1.5-2.0cm)PWd0.73 (0.7-1.1cm) FS (%) 30 %LVDs3.97 (2.0-3.8cm) LVEF (%)56 (>50%) Mitral Valve MV E Vwhzkmvu62.9cm/sMV A Mdulgicp723.5cm/sE/A ratio0.8 TDI E/Lateral E'0.0E/Medial E'0.0 Tricuspid Valve TR Peak Udzpavci196ni/sTR Peak Gr.[id number] LEFT VENTRICLE The left ventricle is normal size. There is normal left ventricular wall thickness. The left ventricular function is normal. The left ventricular ejection fraction is within the normal range. There is normal LV segmental wall motion. Transmitral Doppler flow pattern is abnormal. RIGHT VENTRICLE The right ventricle is normal size. ATRIA The left atrium size is normal. The right atrium size is normal. AORTIC VALVE The aortic valve is normal in structure. MITRAL VALVE The mitral valve is normal in structure. TRICUSPID VALVE There is mild tricuspid regurgitation. <Conclusion> Normal LV systolic function. Diastolic dysfunction. Normal chamber size. Mild TR.
--- NOTE | 2018-05-31 17:44 | CARD ---
APPROVED REPORT Date of service: 05/30/2018 EKG Measurement Heart [id number] <Conclusion> Sinus tachycardia Rightward axis Borderline ECG
[2018-06-01] MEDS: Albuterol-Ipratrop 3 mg / 0.5 (3 ml) UD INH SCH ×6 (03:12→23:32)
[2018-06-01 08:18] LABS: BASO # 0.1 K/uL (0.0-0.2); BASO % 0.6 % (0.0-2.0); EOS # 0.2 K/uL (0.0-0.7); EOS % 1.8 % (0.0-4.0); HEMOGLOBIN 9.3 g/dL (11.0-16.0); LYMPH # 1.7 K/uL (1.0-4.3); MEAN CELL VOLUME 67.6 fL (81.0-99.0); MEAN CORPUSCULAR HEMOGLOBIN 19.1 pg (27.0-31.0); MEAN CORPUSCULAR HGB CONC 28.2 g/dL (33.0-37.0); MONO # 0.9 K/uL (0.0-0.8); MONO % 9.8 % (0.0-10.0); NEUT # 6.3 K/uL (1.8-7.0); NEUT % 68.8 % (50.0-75.0); NRBC % 0.1 % (0.0-2.0); RBC 4.85 Mil/uL (3.80-5.20); RED CELL DISTRIBUTION WIDTH 22.9 % (11.5-14.5); WHITE BLOOD COUNT 9.1 K/uL (4.8-10.8)
[2018-06-01 08:49] LABS: ALB/GLOB RATIO 1.4 (1.0-2.1); ALT/SGPT 25 U/L (9-52); AST/SGOT 19 U/L (14-36); BLOOD UREA NITROGEN 8 mg/dL (7-17); GFR AFRICAN-AMERICAN > 60; GFR NON-AFRICAN AMERICAN > 60
[2018-06-01] MEDS: Pantoprazole 40 mg EC Tab PO SCH (09:39)
[2018-06-01] MEDS: Multiple Vitamins Tab PO SCH (09:39)
[2018-06-01] MEDS: Ferric Sodium Gluconat Complex 62.5 mg/5 ml Vial IVPB SCH (09:39)
--- NOTE | 2018-06-01 11:07 | VASCLAB ---
Date of service: 05/31/2018 PROCEDURE: Lower Extremity Venous Duplex Exam. HISTORY: Leg swelling PRIORS: None. TECHNIQUE: Bilateral common femoral, femoral, popliteal and posterior tibial, peroneal and great saphenous veins were evaluated. Flow was assessed with color Doppler, compressibility, assessment of phasic flow and augmentation response. Report prepared by CLEMENTINA Ortiz FINDINGS: RIGHT: 1. Common Femoral Vein: 1.1. Compressibility - Fully compressible: Thrombus - None : Flow - Phasic: Augmentation -Normal: Reflux - None. 2. Femoral Vein: 2.1. Compressibility - Fully compressible: Thrombus - None : Flow - Phasic: Augmentation -Normal: Reflux - None. 3. Popliteal Vein: 3.1. Compressibility - Fully compressible: Thrombus - None : Flow - Phasic: Augmentation -Normal: Reflux - None. 4. Posterior Tibial Vein: 5. Peroneal Vein: 6. Great Saphenous Vein: 6.1. Compressibility - Fully compressible: Thrombus - None: Flow - Phasic: Augmentation - Normal: Reflux - None. LEFT: 1. Common Femoral Vein: 1.1. Compressibility - Fully compressible: Thrombus - None: Flow - Phasic: Augmentation -Normal: Reflux - None. 2. Femoral Vein: 2.1. Compressibility - Fully compressible: Thrombus - None: Flow - Phasic: Augmentation -Normal: Reflux - None. 3. Popliteal Vein: 3.1. Compressibility - Fully compressible: Thrombus - None : Flow - Phasic: Augmentation -Normal: Reflux - None. 4. Posterior Tibial Vein: 5. Peroneal Vein: 6. Great Saphenous Vein: 6.1. Compressibility - Fully compressible: Thrombus - None: Flow - Phasic: Augmentation - Normal: Reflux - None. OTHER FINDINGS: Bilateral calf veins are not well visualized due to swelling. The remaining veins in bilateral lower extremities are compressible. IMPRESSION: Right: No evidence of deep or superficial vein thrombosis of the right lower extremity. Normal valve function noted of the right side. Left: No evidence of deep or superficial vein thrombosis of the left lower extremity. Normal valve function noted of the left side.
--- NOTE | 2018-06-01 14:27 | CP.PCM.PN ---
<Jones Hand - Last Filed: 06/01/18 16:36> Subjective - Date & Time of Evaluation Date of Evaluation: 06/01/18 Time of Evaluation: 14:17 - Subjective Subjective: Pt is a 53 year old female being evaluated for new onset SOB on exertion and CHF. Patient appears to be doing better today. She appeared to be breathing well and without effort or discomfort on room air. Pt reports that she has been able to walk down the length of the hallway without become short of breath. Shortness of breath noted to be improved, but patient does report that she still feels shortness of breath come on with more strenuous activity. She reports increased energy and mood. Pt denies chest pain, palpitations, dizziness, nausea, vomiting, SOB at rest +SOB with exertion, lower extremity edema Objective - Vital Signs/Intake and Output Vital Signs (last 24 hours): Temp Pulse Resp BP Pulse Ox 98.0 F 79 20 110/71 96 06/01/18 07:00 06/01/18 12:00 06/01/18 07:00 06/01/18 09:38 06/01/18 12:00 Intake and Output: 06/01/18 06/01/18 06:59 18:59 Intake Total 240 Balance 240 - Medications Medications: Current Medications Albuterol/Ipratropium (Duoneb 3 Mg/0.5 Mg (3 Ml) Ud) 3 ml INH Q4 [facility] Last Admin: 06/01/18 11:20 Dose: 3 ml Aspirin (Aspirin Chewable) 81 mg PO DAILY [facility] Last Admin: 06/01/18 09:39 Dose: 81 mg Carvedilol (Coreg) 3.125 mg PO BID [facility] Last Admin: 06/01/18 09:40 Dose: 3.125 mg Ferric Sodium Gluconate Complex (Ferrlecit) 125 mg IVPB DAILY [facility] Stop: 06/04/18 10:01 Last Admin: 06/01/18 09:39 Dose: 125 mg Folic Acid (Folic Acid) 1 mg PO DAILY [facility] Last Admin: 06/01/18 09:39 Dose: 1 mg Furosemide (Lasix) 40 mg IVP DAILY [facility] Last Admin: 06/01/18 09:38 Dose: 40 mg Heparin Sodium (Porcine) (Heparin) 5,000 units SC Q12 [facility] Last Admin: 06/01/18 09:38 Dose: 5,000 units Lisinopril (Zestril) 2.5 mg PO DAILY [facility] Last Admin: 06/01/18 09:40 Dose: 2.5 mg Multivitamins (Hexavitamin) 1 tab PO DAILY [facility] Last Admin: 06/01/18 09:39 Dose: 1 tab Nicotine (Nicoderm Cq) 1 patch TD DAILY [facility] Last Admin: 06/01/18 09:40 Dose: 1 patch Pantoprazole Sodium (Protonix Ec Tab) 40 mg PO DAILY [facility] Last Admin: 06/01/18 09:39 Dose: 40 mg Thiamine HCl (Vitamin B1 Tab) 100 mg PO DAILY [facility] Last Admin: 06/01/18 09:39 Dose: 100 mg - Labs Labs: 06/01/18 08:11 06/01/18 08:11 - Constitutional Appears: No Acute Distress - Eye Exam Eye Exam: EOMI, Normal appearance, PERRL - ENT Exam ENT Exam: Mucous Membranes Moist - Respiratory Exam Respiratory Exam: Decreased Breath Sounds, Clear to Ausculation Bilateral. absent: Accessory Muscle Use - Cardiovascular Exam Cardiovascular Exam: REGULAR RHYTHM, +S1, +S2 - GI/Abdominal Exam GI & Abdominal Exam: Normal Bowel Sounds - Extremities Exam Extremities Exam: Pedal Edema - Neurological Exam Neurological Exam: Alert, Awake, CN II-XII Intact, Oriented x3 - Skin Skin Exam: Intact, Normal Color, Warm Assessment and Plan (1) Shortness of breath Assessment & Plan: Cardiac vs Pulmonary Etiology Continue Lisinopril, Coreg, Furosemide Elevated D-dimer --> CT angiogram negative for PE Echo: EF 56%, diastolic dysfunction, normal LV function, mild TR. BNP in 3800s-4000s suggests potential cardiac component. 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 SOB improving with spO2 95% on 2L NC Continue to assess shortness of breath and edema Status: Acute (2) Alcohol use disorder Assessment & Plan: Discussed importance of cutting back with patient Alcohol use could contribute to development/worsening of heart failure Status: Acute <José Brian - Last Filed: 06/03/18 19:32> Objective - Vital Signs/Intake and Output Vital Signs (last 24 hours): Temp Pulse Resp BP Pulse Ox 97.9 F 77 18 119/73 97 06/03/18 16:00 06/03/18 16:00 06/03/18 16:00 06/03/18 16:00 06/03/18 16:00 Intake and Output: 06/03/18 06/04/18 18:59 06:59 Intake Total 800 Balance 800 - Medications Medications: Current Medications Albuterol/Ipratropium (Duoneb 3 Mg/0.5 Mg (3 Ml) Ud) 3 ml INH Q4 [facility] Last Admin: 06/03/18 15:45 Dose: 3 ml Aspirin (Aspirin Chewable) 81 mg PO DAILY [facility] Last Admin: 06/03/18 11:41 Dose: Not Given Carvedilol (Coreg) 3.125 mg PO BID [facility] Last Admin: 06/03/18 17:28 Dose: 3.125 mg Ferric Sodium Gluconate Complex (Ferrlecit) 125 mg IVPB DAILY [facility] Stop: 06/04/18 10:01 Last Admin: 06/03/18 11:41 Dose: Not Given Folic Acid (Folic Acid) 1 mg PO DAILY [facility] Last Admin: 06/03/18 11:41 Dose: Not Given Heparin Sodium (Porcine) (Heparin) 5,000 units SC Q12 [facility] Last Admin: 06/03/18 11:41 Dose: Not Given Lisinopril (Zestril) 2.5 mg PO DAILY [facility] Last Admin: 06/03/18 11:42 Dose: Not Given Multivitamins (Hexavitamin) 1 tab PO DAILY [facility] Last Admin: 06/03/18 11:41 Dose: Not Given Nicotine (Nicoderm Cq) 1 patch TD DAILY [facility] Last Admin: 06/03/18 11:42 Dose: Not Given Pantoprazole Sodium (Protonix Ec Tab) 40 mg PO DAILY [facility] Last Admin: 06/03/18 11:42 Dose: Not Given Thiamine HCl (Vitamin B1 Tab) 100 mg PO DAILY [facility] Last Admin: 06/03/18 11:42 Dose: Not Given - Labs Labs: 06/03/18 08:33 06/03/18 08:33 Assessment and Plan (1) CHF (congestive heart failure) Status: Acute (2) Pedal edema Status: Acute Attending/Attestation - Attestation I have personally seen and examined this patient.: Yes I have fully participated in the care of the patient.: Yes I have reviewed all pertinent clinical information, including history, physical exam and plan: Yes Notes (Text): 06/03/18 19:32 CHF exacerbation meds titration ischemic evaluation echo
[2018-06-01] MEDS ORDERED: Potassium Chloride 20 mEq ER Tab PO ONE (14:57)
[2018-06-01] MEDS ORDERED: Magnesium Sulfate 1 gm in D5W 1 GM/100 ML BAG IVPB ONE (16:00)
--- NOTE | 2018-06-01 17:15 | CARD ---
APPROVED REPORT Date of service: 05/31/2018 EKG Measurement Heart [id number] [id number] <Conclusion> Sinus tachycardia Rightward axis Borderline ECG
--- NOTE | 2018-06-01 17:16 | CARD ---
APPROVED REPORT Date of service: 05/31/2018 EKG Measurement Heart [id number] [place] [id number] <Conclusion> Sinus tachycardia Otherwise normal ECG
--- NOTE | 2018-06-01 17:57 | US ---
Date of service: 06/01/2018 HISTORY: Abnormal liver, possible cirrhosis COMPARISON: None. TECHNIQUE: Sonographic evaluation of the abdomen. FINDINGS: LIVER: Measures 17.4 cm. Hepatopedal blood flow. Fatty infiltration manifest ultrasonographically as increased echogenicity of the liver parenchyma. No mass. No intrahepatic bile duct dilatation. Incidental finding(s): Multiple subcentimeter cysts GALLBLADDER: Unremarkable. No gallstones. COMMON BILE DUCT: Measures 4.8 mm. No stones. No dilatation. PANCREAS: Unremarkable as visualized. No mass. No ductal dilatation. RIGHT KIDNEY: Measures 4.9 x 11.6cm. Normal echogenicity. No calculus, mass, or hydronephrosis. LEFT KIDNEY: Measures 4.5 x 11.7cm. Normal echogenicity. No calculus, mass, or hydronephrosis. SPLEEN: Splenomegaly. Orthogonal measurements 5.8 x 15.1 AORTA: No aneurysmal dilatation. IVC: Unremarkable. OTHER FINDINGS: None. IMPRESSION: Hepatomegaly, Hepatic steatosis without focal liver abnormality. Mild splenomegaly. No acute findings.
--- NOTE | 2018-06-01 21:31 | CP.PCM.PN ---
<Whitley Watkins P - Last Filed: 06/01/18 21:27> Subjective - Date & Time of Evaluation Date of Evaluation: 06/01/18 Time of Evaluation: 10:00 - Subjective Subjective: PGY-1 Medicine note for doctor Danna. Patient seen and evaluated at bedside. States she feels better today. Does not feel short of breath when walking or at rest. States her leg swelling has decreased as well. Denies fever, chills, chest pain, headache, dizziness, abdominal pain, nausea, vomiting, and diarrhea. Objective - Vital Signs/Intake and Output Vital Signs (last 24 hours): Temp Pulse Resp BP Pulse Ox 98.1 F 82 20 114/71 96 06/01/18 16:00 06/01/18 16:00 06/01/18 16:00 06/01/18 16:00 06/01/18 15:57 - Medications Medications: Current Medications Albuterol/Ipratropium (Duoneb 3 Mg/0.5 Mg (3 Ml) Ud) 3 ml INH Q4 [facility] Last Admin: 06/01/18 19:33 Dose: 3 ml Aspirin (Aspirin Chewable) 81 mg PO DAILY [facility] Last Admin: 06/01/18 09:39 Dose: 81 mg Carvedilol (Coreg) 3.125 mg PO BID [facility] Last Admin: 06/01/18 17:15 Dose: Not Given Ferric Sodium Gluconate Complex (Ferrlecit) 125 mg IVPB DAILY [facility] Stop: 06/04/18 10:01 Last Admin: 06/01/18 09:39 Dose: 125 mg Folic Acid (Folic Acid) 1 mg PO DAILY [facility] Last Admin: 06/01/18 09:39 Dose: 1 mg Furosemide (Lasix) 40 mg IVP DAILY [facility] Last Admin: 06/01/18 09:38 Dose: 40 mg Heparin Sodium (Porcine) (Heparin) 5,000 units SC Q12 [facility] Last Admin: 06/01/18 09:38 Dose: 5,000 units Lisinopril (Zestril) 2.5 mg PO DAILY [facility] Last Admin: 06/01/18 09:40 Dose: 2.5 mg Multivitamins (Hexavitamin) 1 tab PO DAILY [facility] Last Admin: 06/01/18 09:39 Dose: 1 tab Nicotine (Nicoderm Cq) 1 patch TD DAILY [facility] Last Admin: 06/01/18 09:40 Dose: 1 patch Pantoprazole Sodium (Protonix Ec Tab) 40 mg PO DAILY [facility] Last Admin: 06/01/18 09:39 Dose: 40 mg Thiamine HCl (Vitamin B1 Tab) 100 mg PO DAILY [facility] Last Admin: 06/01/18 09:39 Dose: 100 mg - Labs Labs: 06/01/18 08:11 06/01/18 08:11 - Constitutional Appears: No Acute Distress - Head Exam Head Exam: ATRAUMATIC, NORMOCEPHALIC - Eye Exam Eye Exam: EOMI, Normal appearance - ENT Exam ENT Exam: Mucous Membranes Moist - Respiratory Exam Respiratory Exam: Decreased Breath Sounds, Clear to Ausculation Bilateral. absent: Accessory Muscle Use, Rales, Rhonchi, Wheezes - Cardiovascular Exam Cardiovascular Exam: REGULAR RHYTHM, +S1, +S2 - GI/Abdominal Exam GI & Abdominal Exam: Soft, Normal Bowel Sounds. absent: Distended, Guarding, Tenderness - Extremities Exam Extremities Exam: Pedal Edema (1+ bilaterally). absent: Calf Tenderness, Tenderness - Neurological Exam Neurological Exam: Alert, Awake, Oriented x3 - Psychiatric Exam Psychiatric exam: Normal Mood - Skin Skin Exam: Dry, Intact, Warm Assessment and Plan - Assessment and Plan (Free Text) Plan: Shortness of breath secondary to COPD vs new onset CHF - Cardiology consulted - Dr. Brian -help appreciated - BNP 4960 - CXR: cardiomegaly noted, no effusions noted - ECHO- LVEF 56%. normal LV systolic function. Diastolic dysfunction. mild TR. Normal chamber size. (see full report) -CTA- No pulmonary embolus. Dilated main pulmonary artery likely pulmonary hypertension. Nodular contour of liver likely reflecting cirrhosis. Both upper pole too small to characterize hypodensities scattered throughout the liver ( see full report) - Started on ASA, Lisinopril, carvedilol, Lasix - I &Os, daily weight, fluid restriction, HHD with fluid and salt restriction -05/31: wt 188 lbs, 200mL oral input -06/01: wt 189 lbs, 640mL oral input Tachycardia-improved - On admission: Low 100s, sinus tachycardia on EKG - Risk factor for PE: smoking hx, recently ambulating less, denied recent travel - D-dimer: 408 -CTA- No pulmonary embolus. Dilated main pulmonary artery likely pulmonary hypertension. Nodular contour of liver likely reflecting cirrhosis. Both upper pole too small to characterize hypodensities scattered throughout the liver ( see full report) Venous doppler- no abnormal findings bilaterally COPD - 1-2 PPD / 30 years - Hypercapneic on ABG - expected CO2 retention - Duonebs Q4H -2L NC -Dr. Orozco, pulmonology consulted, Help appreciated. Abnormal liver finding on CTA -CTA- Nodular contour of the liver likely reflecting cirrhosis. Both upper pole too small to characterize hypodensities scattered throughout the liver (see full report) -06/01/18 Abdominal US-Hepatomegaly, Hepatic steatosis without focal liver abnormality. Mild splenomegaly. No acute findings. Iron Deficiency Anemia - Iron panel: iron 20, TIBC 463, %sat 5, ferritin 5.4 - Ferrlecit daily started Alcohol Use Disorder - Cessation encouraged - Aspiration precautions - MV, thiamine, folic daily Tobacco Use Disorder - Smoking Cessation encouraged - Nicotine patch daily Prophylactic Measures - GI PPX: Protonix - DVT PPX: Heparin Q12, SCDs C/I 2/2 BL LE swelling - PT/ OT- recommend pt discharge to [facility] when stable. Dr. Brian planning for nuclear stress test tomorrow to evaluate possible myocardial ischemia as BNP in 3800s-4000s suggests potential cardiac component. Follow up Dr. Orozco recs. <Karley Clay V - Last Filed: 06/05/18 21:13> Objective - Vital Signs/Intake and Output Vital Signs (last 24 hours): Temp Pulse Resp BP Pulse Ox 98.2 F 67 20 128/71 96 06/04/18 07:24 06/04/18 08:17 06/04/18 07:24 06/04/18 09:26 06/04/18 07:24 - Labs Labs: 06/04/18 08:02 06/04/18 08:02 Attending/Attestation - Attestation I have personally seen and examined this patient.: Yes I have fully participated in the care of the patient.: Yes I have reviewed all pertinent clinical information, including history, physical exam and plan: Yes Notes (Text): This is late computer entry for 06/01/18. Patient seen, examined and case discussed with day-time resident. Cardiology and pulmonary following. Will continue current management. Assessment/Plan 1) Possible Acute Congestive Heart Failure Exacerbation Assessment/Plan * Monitor on telemetry * Cardiology consulted - Dr. Brian on consult-->help appreciated * continue BB, ACEi, ASA, lasix and f/u echo. * On exam, no JVD noted, no rales noted, decreased breathe sounds, bilateral lower extremity swelling +1 pitting edema up to knees * BNP 4960--> 3810 * CXR: cardiomegaly noted, no effusions noted * ECHO- LVEF 56%. normal LV systolic function. Diastolic dysfunction. mild TR. Normal chamber size. (see full report) * CTA- No pulmonary embolus. Dilated main pulmonary artery likely pulmonary hypertension. Nodular contour of liver likely reflecting cirrhosis. Both upper pole too small to characterize hypodensities scattered throughout the liver ( see full report) * Aspirin 81mg PO daily * Coreg 3.125mg PO BID * Lasix 40mg IV q daily * Lisinopril 2.5mg PO daily * Intake and output * Monitor daily weights * Fluid restriction 2) Sinus Tachycardia Assessment/Plan * Low 100s, sinus tachycardia on EKG * Risk factor for PE: smoking hx, edema * D-dimer: elevated * CTA- No pulmonary embolus. Dilated main pulmonary artery likely pulmonary hypertension. Nodular contour of liver likely reflecting cirrhosis. Both upper pole too small to characterize hypodensities scattered throughout the liver ( see full report) * Venous doppler b/l lateral 3) Suspected COPD Assessment/Plan * Pulmonary (Dr. Orozco) on consult-->help appreciated * 1-2 PPD / 30 years * Decreased breath sounds on exam, faint wheezing RLL * Hypercapneic on ABG - expected CO2 retention * Duonebs Q6H * Nasal cannula oxygen 2L 4) Iron Deficiency Anemia Assessment/Plan * Iron panel: iron 20, TIBC 463, %sat 5, ferritin 5.4 * Reticulocyte count: 4.8 * Reticulocyte index: 0.56 5) Alcohol Use Disorder Assessment/Plan * Cessation encouraged * Seizure, Aspiration precautions * MVI 1 tab PO daily * Thiamine 100mg PO daily * Folic daily 1 mg PO daily * Ativan PRN 6) Tobacco Use Disorder Assessment/Plan * Smoking Cessation encouraged * Nicotine patch daily 7) Abnormal Liver finding on CT Assessment/Plan * CTA- Nodular contour of the liver likely reflecting cirrhosis. Both upper pole too small to characterize hypodensities scattered throughout the liver ( see full report) * 06/01/18 Abdominal US-Hepatomegaly, Hepatic steatosis without focal liver abnormality. Mild splenomegaly. No acute findings. 8) Prophylactic Measures * GI PPX: Protonix 40mg PO daily * DVT PPX: Heparin 5000 units Q12, SCDs C/I 2/ BL LE swelling * PT/ OT eval
[2018-06-02] MEDS: Albuterol-Ipratrop 3 mg / 0.5 (3 ml) UD INH SCH ×5 (03:16→19:17)
--- NOTE | 2018-06-02 06:49 | CON ---
DATE: 05/31/2018 HISTORY OF PRESENT ILLNESS: A 53-year-old female with history of smoking, alcoholism and has a chief complaint of shortness of breath, weakness and fatigue. The patient came to the ER, advised admission. The patient swelling of lower extremity and extreme shortness of breath with ambulation. The patient does not work. PHYSICAL EXAMINATION: GENERAL: The patient is awake, alert, oriented. VITAL SIGNS: Temperature 98, pulse 90. HEENT: Within normal limits. NECK: Supple. CHEST: Symmetrical. HEART: Regular. ABDOMEN: Soft. EXTREMITIES: 1+ edema. LABORATORY DATA: Chest x-ray, cardiomegaly. ASSESSMENT AND PLAN: The patient suffers from CHF, chronic obstructive pulmonary disease and Tachycardia, right-sided failure. echocardiogram, bronchodilator, O2. Tabitha Orozco MD
[2018-06-02 07:55] LABS: BASO % 0.6 % (0.0-2.0); EOS # 0.2 K/uL (0.0-0.7); EOS % 2.3 % (0.0-4.0); HEMOGLOBIN 9.3 g/dL (11.0-16.0); LYMPH # 1.4 K/uL (1.0-4.3); LYMPH % 17.9 % (20.0-40.0); MEAN CORPUSCULAR HEMOGLOBIN 19.4 pg (27.0-31.0); MEAN CORPUSCULAR HGB CONC 28.5 g/dL (33.0-37.0); MEAN PLATELET VOLUME 9.1 fL (7.2-11.7); MONO # 0.9 K/uL (0.0-0.8); MONO % 11.2 % (0.0-10.0); NEUT # 5.2 K/uL (1.8-7.0); NRBC % 0.1 % (0.0-2.0); RBC 4.81 Mil/uL (3.80-5.20); RED CELL DISTRIBUTION WIDTH 22.6 % (11.5-14.5); WHITE BLOOD COUNT 7.6 K/uL (4.8-10.8)
[2018-06-02 08:32] LABS: ALBUMIN 2.9 g/dL (3.5-5.0); ALT/SGPT 29 U/L (9-52); AST/SGOT 22 U/L (14-36); BLOOD UREA NITROGEN 9 mg/dL (7-17); CALCIUM 8.5 mg/dl (8.6-10.4); GFR AFRICAN-AMERICAN > 60; GFR NON-AFRICAN AMERICAN > 60
[2018-06-02] MEDS ORDERED: Pneumococcal 23-Valent Vaccine IM ONE (10:00)
[2018-06-02] MEDS: Ferric Sodium Gluconat Complex 62.5 mg/5 ml Vial IVPB SCH (10:33)
[2018-06-02] MEDS: Pantoprazole 40 mg EC Tab PO SCH (10:33)
[2018-06-02] MEDS: Multiple Vitamins Tab PO SCH (10:33)
--- NOTE | 2018-06-02 13:29 | CP.PCM.PN ---
<Jones Hand - Last Filed: 06/02/18 17:31> Subjective - Date & Time of Evaluation Date of Evaluation: 06/02/18 Time of Evaluation: 11:40 - Subjective Subjective: PGY-1 cardiology progress note for Dr. Brian Pt seen and examined at bedside. Pt has no new complaints, only shortness of breath with exertion. Pt is tolerating O2 on 3L NC. Waiting for pharmacological stress test to be done tomorrow. Denies any chest pain, palpitations, SOB, dizziness, nausea, vomitting, abdominal pain. Objective - Vital Signs/Intake and Output Vital Signs (last 24 hours): Temp Pulse Resp BP Pulse Ox 98.1 F 90 20 112/68 95 06/02/18 08:00 06/02/18 08:00 06/02/18 08:00 06/02/18 10:33 06/02/18 08:00 - Medications Medications: Current Medications Albuterol/Ipratropium (Duoneb 3 Mg/0.5 Mg (3 Ml) Ud) 3 ml INH Q4 [facility] Last Admin: 06/02/18 12:05 Dose: 3 ml Aspirin (Aspirin Chewable) 81 mg PO DAILY [facility] Last Admin: 06/02/18 10:33 Dose: 81 mg Carvedilol (Coreg) 3.125 mg PO BID [facility] Last Admin: 06/02/18 10:33 Dose: 3.125 mg Ferric Sodium Gluconate Complex (Ferrlecit) 125 mg IVPB DAILY [facility] Stop: 06/04/18 10:01 Last Admin: 06/02/18 10:33 Dose: 125 mg Folic Acid (Folic Acid) 1 mg PO DAILY [facility] Last Admin: 06/02/18 10:33 Dose: 1 mg Furosemide (Lasix) 40 mg IVP DAILY [facility] Last Admin: 06/02/18 10:33 Dose: 40 mg Heparin Sodium (Porcine) (Heparin) 5,000 units SC Q12 [facility] Last Admin: 06/02/18 10:33 Dose: 5,000 units Lisinopril (Zestril) 2.5 mg PO DAILY [facility] Last Admin: 06/02/18 10:33 Dose: 2.5 mg Multivitamins (Hexavitamin) 1 tab PO DAILY [facility] Last Admin: 06/02/18 10:33 Dose: 1 tab Nicotine (Nicoderm Cq) 1 patch TD DAILY [facility] Last Admin: 06/02/18 10:33 Dose: 1 patch Pantoprazole Sodium (Protonix Ec Tab) 40 mg PO DAILY [facility] Last Admin: 06/02/18 10:33 Dose: 40 mg Thiamine HCl (Vitamin B1 Tab) 100 mg PO DAILY [facility] Last Admin: 06/02/18 10:33 Dose: 100 mg - Labs Labs: 06/02/18 07:39 06/02/18 07:40 - Constitutional Appears: Well, Non-toxic, No Acute Distress - Head Exam Head Exam: ATRAUMATIC, NORMOCEPHALIC - Eye Exam Eye Exam: EOMI, PERRL - ENT Exam ENT Exam: Mucous Membranes Moist - Respiratory Exam Respiratory Exam: Clear to Ausculation Bilateral - Cardiovascular Exam Cardiovascular Exam: REGULAR RHYTHM, +S1, +S2. absent: JVD - Extremities Exam Extremities Exam: Pedal Edema - Neurological Exam Neurological Exam: Alert, Awake, CN II-XII Intact - Skin Skin Exam: Intact, Warm Assessment and Plan (1) Shortness of breath Assessment & Plan: BNP 3800s-4000s Echo: 05/30: EF 56% with normal LV systolic and diastolic function Pharmacological stress test tomorrow to assess possible myocardial ischemia spO2 95% on 3L NC - Continue oxygen therapy Status: Acute (2) Alcohol use disorder Assessment & Plan: Discussed importance of cutting down with patient Alcohol could contribute to cardiotoxicity Status: Acute <José Brian - Last Filed: 06/03/18 19:32> Objective - Vital Signs/Intake and Output Vital Signs (last 24 hours): Temp Pulse Resp BP Pulse Ox 97.9 F 77 18 119/73 97 06/03/18 16:00 06/03/18 16:00 06/03/18 16:00 06/03/18 16:00 06/03/18 16:00 Intake and Output: 06/03/18 06/04/18 18:59 06:59 Intake Total 800 Balance 800 - Medications Medications: Current Medications Albuterol/Ipratropium (Duoneb 3 Mg/0.5 Mg (3 Ml) Ud) 3 ml INH Q4 [facility] Last Admin: 06/03/18 15:45 Dose: 3 ml Aspirin (Aspirin Chewable) 81 mg PO DAILY [facility] Last Admin: 06/03/18 11:41 Dose: Not Given Carvedilol (Coreg) 3.125 mg PO BID [facility] Last Admin: 06/03/18 17:28 Dose: 3.125 mg Ferric Sodium Gluconate Complex (Ferrlecit) 125 mg IVPB DAILY [facility] Stop: 06/04/18 10:01 Last Admin: 06/03/18 11:41 Dose: Not Given Folic Acid (Folic Acid) 1 mg PO DAILY [facility] Last Admin: 06/03/18 11:41 Dose: Not Given Heparin Sodium (Porcine) (Heparin) 5,000 units SC Q12 [facility] Last Admin: 06/03/18 11:41 Dose: Not Given Lisinopril (Zestril) 2.5 mg PO DAILY [facility] Last Admin: 06/03/18 11:42 Dose: Not Given Multivitamins (Hexavitamin) 1 tab PO DAILY [facility] Last Admin: 06/03/18 11:41 Dose: Not Given Nicotine (Nicoderm Cq) 1 patch TD DAILY [facility] Last Admin: 06/03/18 11:42 Dose: Not Given Pantoprazole Sodium (Protonix Ec Tab) 40 mg PO DAILY [facility] Last Admin: 06/03/18 11:42 Dose: Not Given Thiamine HCl (Vitamin B1 Tab) 100 mg PO DAILY [facility] Last Admin: 06/03/18 11:42 Dose: Not Given - Labs Labs: 06/03/18 08:33 06/03/18 08:33 Assessment and Plan (1) CHF (congestive heart failure) Status: Acute (2) Pedal edema Status: Acute Attending/Attestation - Attestation I have personally seen and examined this patient.: Yes I have fully participated in the care of the patient.: Yes I have reviewed all pertinent clinical information, including history, physical exam and plan: Yes Notes (Text): 06/03/18 19:31 Sx and BNP out of proportion to EF on echo plan for stress test in am
--- NOTE | 2018-06-02 17:06 | CP.PCM.PN ---
<Bran Gómez M - Last Filed: 06/02/18 18:13> Subjective - Date & Time of Evaluation Date of Evaluation: 06/02/18 Time of Evaluation: 09:10 - Subjective Subjective: PGY1 Resident Note for Dr. Clay. Patient seen and examined at bedside. No overnight events. Patient denies chest pain, shortness of breath, abdominal pain, constipation, trouble voiding. Pt stress test, originally scheduled for today, 06/02, rescheduled for tomorrow . Objective - Vital Signs/Intake and Output Vital Signs (last 24 hours): Temp Pulse Resp BP Pulse Ox 98.3 F 72 20 111/69 98 06/02/18 15:25 06/02/18 16:17 06/02/18 15:25 06/02/18 15:25 06/02/18 15:25 Intake and Output: 06/02/18 06/02/18 06:59 18:59 Intake Total 900 Balance 900 - Medications Medications: Current Medications Albuterol/Ipratropium (Duoneb 3 Mg/0.5 Mg (3 Ml) Ud) 3 ml INH Q4 [facility] Last Admin: 06/02/18 15:38 Dose: 3 ml Aspirin (Aspirin Chewable) 81 mg PO DAILY [facility] Last Admin: 06/02/18 10:33 Dose: 81 mg Carvedilol (Coreg) 3.125 mg PO BID [facility] Last Admin: 06/02/18 10:33 Dose: 3.125 mg Ferric Sodium Gluconate Complex (Ferrlecit) 125 mg IVPB DAILY [facility] Stop: 06/04/18 10:01 Last Admin: 06/02/18 10:33 Dose: 125 mg Folic Acid (Folic Acid) 1 mg PO DAILY [facility] Last Admin: 06/02/18 10:33 Dose: 1 mg Furosemide (Lasix) 40 mg IVP DAILY [facility] Last Admin: 06/02/18 10:33 Dose: 40 mg Heparin Sodium (Porcine) (Heparin) 5,000 units SC Q12 [facility] Last Admin: 06/02/18 10:33 Dose: 5,000 units Lisinopril (Zestril) 2.5 mg PO DAILY [facility] Last Admin: 06/02/18 10:33 Dose: 2.5 mg Multivitamins (Hexavitamin) 1 tab PO DAILY [facility] Last Admin: 06/02/18 10:33 Dose: 1 tab Nicotine (Nicoderm Cq) 1 patch TD DAILY [facility] Last Admin: 06/02/18 10:33 Dose: 1 patch Pantoprazole Sodium (Protonix Ec Tab) 40 mg PO DAILY [facility] Last Admin: 06/02/18 10:33 Dose: 40 mg Thiamine HCl (Vitamin B1 Tab) 100 mg PO DAILY [facility] Last Admin: 06/02/18 10:33 Dose: 100 mg - Labs Labs: 06/02/18 07:39 06/02/18 07:40 - Constitutional Appears: Non-toxic, No Acute Distress - Head Exam Head Exam: ATRAUMATIC, NORMAL INSPECTION, NORMOCEPHALIC - Eye Exam Eye Exam: Normal appearance, PERRL Pupil Exam: NORMAL ACCOMODATION - ENT Exam ENT Exam: Mucous Membranes Moist - Neck Exam Neck Exam: Normal Inspection - Respiratory Exam Respiratory Exam: Decreased Breath Sounds, Clear to Ausculation Bilateral. absent: Rales, Rhonchi, Wheezes - Cardiovascular Exam Cardiovascular Exam: +S1, +S2, Murmur. absent: Irregular Rhythm Additional comments: systolic murmur appreciated - GI/Abdominal Exam GI & Abdominal Exam: Soft, Normal Bowel Sounds. absent: Firm, Guarding, Rigid - Extremities Exam Extremities Exam: Full ROM, Pedal Edema. absent: Calf Tenderness Additional comments: 2 to 3+ pitting edema B/L LE - Neurological Exam Neurological Exam: Alert, Awake, Oriented x3 - Psychiatric Exam Psychiatric exam: Normal Affect, Normal Mood - Skin Skin Exam: Dry, Intact, Normal Color, Warm Assessment and Plan - Assessment and Plan (Free Text) Assessment: Shortness of breath secondary to COPD vs new onset CHF - Cardiology consulted - Dr. Brian -help appreciated - planned nuclear stress test tomorrow 06/03 - BNP 4960 - > 3810 - CXR: cardiomegaly noted, no effusions noted - ECHO- LVEF 56%. normal LV systolic function. Diastolic dysfunction. mild TR. Normal chamber size. (see full report) - CTA- No pulmonary embolus. Dilated main pulmonary artery likely pulmonary hypertension. Nodular contour of liver likely reflecting cirrhosis. Both upper pole too small to characterize hypodensities scattered throughout the liver ( see full report) - Currently on ASA 81 mg daily, Lisinopril 2.5mg PO daily, carvedilol 3.125 mg PO BID, Lasix 40 mg IVP daily (consider converting to PO) - I &Os, daily weight, fluid restriction, HHD with fluid and salt restriction -05/31: wt 188 lbs, 200mL oral input -06/01: wt 189 lbs, 640mL oral input -06/02: wt 190 lbs, 900mL oral input Tachycardia-improved - On admission: Low 100s, sinus tachycardia on EKG - Risk factor for PE: smoking hx, recently ambulating less, denied recent travel - D-dimer: 408 -CTA- No pulmonary embolus. Dilated main pulmonary artery likely pulmonary hypertension. Nodular contour of liver likely reflecting cirrhosis. Both upper pole too small to characterize hypodensities scattered throughout the liver ( see full report) Venous doppler- no abnormal findings bilaterally COPD - 1-2 PPD / 30 years - Hypercapneic on ABG - expected CO2 retention - Duonebs Q4H - 2L NC -Dr. Orozco, pulmonology consulted, Help appreciated - per conversation 06/02, pt is cleared for discharge from pulmonary standpoint - likely COPD component - D/C w/ Dunonebs Q6 daily & Spiriva once daily Abnormal liver finding on CTA -CTA- Nodular contour of the liver likely reflecting cirrhosis. Both upper pole too small to characterize hypodensities scattered throughout the liver (see full report) -06/01/18 Abdominal US-Hepatomegaly, Hepatic steatosis without focal liver abnormality. Mild splenomegaly. No acute findings. Iron Deficiency Anemia - Iron panel: iron 20, TIBC 463, %sat 5, ferritin 5.4 - Ferrlecit daily started Alcohol Use Disorder - Cessation encouraged - Aspiration precautions - MV, thiamine, folic daily Tobacco Use Disorder - Smoking Cessation encouraged - Nicotine patch daily Prophylactic Measures - GI PPX: Protonix - DVT PPX: Heparin Q12, SCDs C/I 2/2 BL LE swelling - PT/ OT- recommend pt discharge to [facility] when stable. Dr. Brian planning for nuclear stress test tomorrow 06/03 to evaluate possible myocardial ischemia as BNP in 3800s-4000s suggests potential cardiac component. Dr. Orozco - 06/02, pt is cleared for discharge from pulmonary standpoint - likely COPD component, D/C w/ Dunonebs Q6 daily & Spiriva once daily <Karley Clay V - Last Filed: 06/05/18 21:16> Objective - Vital Signs/Intake and Output Vital Signs (last 24 hours): Temp Pulse Resp BP Pulse Ox 98.2 F 67 20 128/71 96 06/04/18 07:24 06/04/18 08:17 06/04/18 07:24 06/04/18 09:26 06/04/18 07:24 - Labs Labs: 06/04/18 08:02 06/04/18 08:02 Attending/Attestation - Attestation I have personally seen and examined this patient.: Yes I have fully participated in the care of the patient.: Yes I have reviewed all pertinent clinical information, including history, physical exam and plan: Yes Notes (Text): This is late computer entry for 06/02/18. Patient seen, examined and case discussed with day-time resident. Patient is scheduled for nuclear stress test tomorrow with Dr. Brian. Per pulmonary standpoint, stable from their standpoint. Assessment/Plan 1) Possible Acute Congestive Heart Failure Exacerbation Assessment/Plan * Monitor on telemetry * Cardiology consulted - Dr. Brian on consult-->help appreciated * continue BB, ACEi, ASA, lasix and f/u echo. * On exam, no JVD noted, no rales noted, decreased breathe sounds, bilateral lower extremity swelling +1 pitting edema up to knees * BNP 4960--> 3810 * CXR: cardiomegaly noted, no effusions noted * ECHO- LVEF 56%. normal LV systolic function. Diastolic dysfunction. mild TR. Normal chamber size. (see full report) * CTA- No pulmonary embolus. Dilated main pulmonary artery likely pulmonary hypertension. Nodular contour of liver likely reflecting cirrhosis. Both upper pole too small to characterize hypodensities scattered throughout the liver ( see full report) * Aspirin 81mg PO daily * Coreg 3.125mg PO BID * Lasix 40mg IV q daily * Lisinopril 2.5mg PO daily * Intake and output * Monitor daily weights * Fluid restriction 2) Sinus Tachycardia Assessment/Plan * Low 100s, sinus tachycardia on EKG * Risk factor for PE: smoking hx, edema * D-dimer: elevated * CTA- No pulmonary embolus. Dilated main pulmonary artery likely pulmonary hypertension. Nodular contour of liver likely reflecting cirrhosis. Both upper pole too small to characterize hypodensities scattered throughout the liver ( see full report) * Venous doppler b/l lateral 3) Suspected COPD Assessment/Plan * Pulmonary (Dr. Orozco) on consult-->help appreciated * 1-2 PPD / 30 years * Decreased breath sounds on exam, faint wheezing RLL * Duonebs Q$H * Hypercapneic on ABG - expected CO2 retention * Duonebs Q6H * Nasal cannula oxygen 2L 4) Iron Deficiency Anemia Assessment/Plan * Iron panel: iron 20, TIBC 463, %sat 5, ferritin 5.4 * Reticulocyte count: 4.8 * Reticulocyte index: 0.56 * Ferrric Sodium Gluconate Compleex 5) Alcohol Use Disorder Assessment/Plan * Cessation encouraged * Seizure, Aspiration precautions * MVI 1 tab PO daily * Thiamine 100mg PO daily * Folic daily 1 mg PO daily * Ativan PRN 6) Tobacco Use Disorder Assessment/Plan * Smoking Cessation encouraged * Nicotine patch daily 7) Abnormal Liver finding on CT Assessment/Plan * CTA- Nodular contour of the liver likely reflecting cirrhosis. Both upper pole too small to characterize hypodensities scattered throughout the liver ( see full report) * 06/01/18 Abdominal US-Hepatomegaly, Hepatic steatosis without focal liver abnormality. Mild splenomegaly. No acute findings. 8) Prophylactic Measures * GI PPX: Protonix 40mg PO daily * DVT PPX: Heparin 5000 units Q12, SCDs C/I 2/2 BL LE swelling * PT/ OT eval
[2018-06-03] MEDS: Albuterol-Ipratrop 3 mg / 0.5 (3 ml) UD INH SCH ×6 (01:06→20:05)
--- NOTE | 2018-06-03 08:15 | CP.PCM.PN ---
<Jones Hand - Last Filed: 06/03/18 08:11> Subjective - Date & Time of Evaluation Date of Evaluation: 06/03/18 Time of Evaluation: 08:12 - Subjective Subjective: Pt seen and examined at bedside. No new complaints, no events overnight. Patient is breathing comfortably on O2 NC. Pt will have pharmacological stress test later this morning. Denies chest pain, SOB, dizziness, nausea, vomiting Objective - Vital Signs/Intake and Output Vital Signs (last 24 hours): Temp Pulse Resp BP Pulse Ox 98.0 F 90 20 105/57 L 100 06/02/18 23:44 06/03/18 07:00 06/02/18 23:44 06/02/18 23:44 06/02/18 23:44 - Medications Medications: Current Medications Albuterol/Ipratropium (Duoneb 3 Mg/0.5 Mg (3 Ml) Ud) 3 ml INH Q4 [facility] Last Admin: 06/03/18 07:57 Dose: 3 ml Aspirin (Aspirin Chewable) 81 mg PO DAILY [facility] Last Admin: 06/02/18 10:33 Dose: 81 mg Carvedilol (Coreg) 3.125 mg PO BID [facility] Last Admin: 06/02/18 18:18 Dose: 3.125 mg Ferric Sodium Gluconate Complex (Ferrlecit) 125 mg IVPB DAILY [facility] Stop: 06/04/18 10:01 Last Admin: 06/02/18 10:33 Dose: 125 mg Folic Acid (Folic Acid) 1 mg PO DAILY [facility] Last Admin: 06/02/18 10:33 Dose: 1 mg Furosemide (Lasix) 40 mg IVP DAILY [facility] Last Admin: 06/02/18 10:33 Dose: 40 mg Heparin Sodium (Porcine) (Heparin) 5,000 units SC Q12 [facility] Last Admin: 06/02/18 21:54 Dose: 5,000 units Lisinopril (Zestril) 2.5 mg PO DAILY [facility] Last Admin: 06/02/18 10:33 Dose: 2.5 mg Multivitamins (Hexavitamin) 1 tab PO DAILY [facility] Last Admin: 06/02/18 10:33 Dose: 1 tab Nicotine (Nicoderm Cq) 1 patch TD DAILY [facility] Last Admin: 06/02/18 10:33 Dose: 1 patch Pantoprazole Sodium (Protonix Ec Tab) 40 mg PO DAILY [facility] Last Admin: 06/02/18 10:33 Dose: 40 mg Thiamine HCl (Vitamin B1 Tab) 100 mg PO DAILY [facility] Last Admin: 06/02/18 10:33 Dose: 100 mg - Labs Labs: 06/02/18 07:39 06/02/18 07:40 - Constitutional Appears: Well - Head Exam Head Exam: NORMAL INSPECTION, NORMOCEPHALIC - Eye Exam Eye Exam: EOMI, Normal appearance, PERRL - ENT Exam ENT Exam: Mucous Membranes Moist, Normal Exam - Respiratory Exam Respiratory Exam: Decreased Breath Sounds - Cardiovascular Exam Cardiovascular Exam: REGULAR RHYTHM, +S1, +S2 - GI/Abdominal Exam GI & Abdominal Exam: Soft Assessment and Plan (1) Shortness of breath Assessment & Plan: BNP 3800 Echo: 05/30: EF 56% Noromal LV systolic and diastolic function Pharm stress test to be done later this morning spO2 100% on 3L NC Status: Acute (2) Alcohol use disorder Assessment & Plan: Discussed cutting down with patient Status: Acute <José Brian - Last Filed: 06/03/18 19:31> Objective - Vital Signs/Intake and Output Vital Signs (last 24 hours): Temp Pulse Resp BP Pulse Ox 97.9 F 77 18 119/73 97 06/03/18 16:00 06/03/18 16:00 06/03/18 16:00 06/03/18 16:00 06/03/18 16:00 Intake and Output: 06/03/18 06/04/18 18:59 06:59 Intake Total 800 Balance 800 - Medications Medications: Current Medications Albuterol/Ipratropium (Duoneb 3 Mg/0.5 Mg (3 Ml) Ud) 3 ml INH Q4 [facility] Last Admin: 06/03/18 15:45 Dose: 3 ml Aspirin (Aspirin Chewable) 81 mg PO DAILY [facility] Last Admin: 06/03/18 11:41 Dose: Not Given Carvedilol (Coreg) 3.125 mg PO BID [facility] Last Admin: 06/03/18 17:28 Dose: 3.125 mg Ferric Sodium Gluconate Complex (Ferrlecit) 125 mg IVPB DAILY [facility] Stop: 06/04/18 10:01 Last Admin: 06/03/18 11:41 Dose: Not Given Folic Acid (Folic Acid) 1 mg PO DAILY [facility] Last Admin: 06/03/18 11:41 Dose: Not Given Heparin Sodium (Porcine) (Heparin) 5,000 units SC Q12 [facility] Last Admin: 06/03/18 11:41 Dose: Not Given Lisinopril (Zestril) 2.5 mg PO DAILY [facility] Last Admin: 06/03/18 11:42 Dose: Not Given Multivitamins (Hexavitamin) 1 tab PO DAILY [facility] Last Admin: 06/03/18 11:41 Dose: Not Given Nicotine (Nicoderm Cq) 1 patch TD DAILY [facility] Last Admin: 06/03/18 11:42 Dose: Not Given Pantoprazole Sodium (Protonix Ec Tab) 40 mg PO DAILY [facility] Last Admin: 06/03/18 11:42 Dose: Not Given Thiamine HCl (Vitamin B1 Tab) 100 mg PO DAILY [facility] Last Admin: 06/03/18 11:42 Dose: Not Given - Labs Labs: 06/03/18 08:33 06/03/18 08:33 Assessment and Plan (1) CHF (congestive heart failure) Status: Acute (2) Pedal edema Status: Acute Attending/Attestation - Attestation I have personally seen and examined this patient.: Yes I have fully participated in the care of the patient.: Yes I have reviewed all pertinent clinical information, including history, physical exam and plan: Yes Notes (Text): 06/03/18 19:31 stress test normal stable to [place]
[2018-06-03 08:41] LABS: BASO % 0.7 % (0.0-2.0); EOS # 0.1 K/uL (0.0-0.7); EOS % 2.1 % (0.0-4.0); HEMOGLOBIN 9.1 g/dL (11.0-16.0); LYMPH # 1.3 K/uL (1.0-4.3); LYMPH % 18.7 % (20.0-40.0); MEAN CELL VOLUME 68.5 fL (81.0-99.0); MEAN CORPUSCULAR HEMOGLOBIN 19.4 pg (27.0-31.0); MEAN CORPUSCULAR HGB CONC 28.3 g/dL (33.0-37.0); MEAN PLATELET VOLUME 9.3 fL (7.2-11.7); MONO # 0.9 K/uL (0.0-0.8); MONO % 12.9 % (0.0-10.0); NEUT # 4.4 K/uL (1.8-7.0); NEUT % 65.6 % (50.0-75.0); NRBC % 0.1 % (0.0-2.0); RBC 4.69 Mil/uL (3.80-5.20); RED CELL DISTRIBUTION WIDTH 22.6 % (11.5-14.5); WHITE BLOOD COUNT 6.7 K/uL (4.8-10.8)
[2018-06-03 09:07] LABS: ALB/GLOB RATIO 1.1 (1.0-2.1); ALBUMIN 2.8 g/dL (3.5-5.0); ALT/SGPT 26 U/L (9-52); AST/SGOT 21 U/L (14-36); BLOOD UREA NITROGEN 10 mg/dL (7-17); CALCIUM 8.3 mg/dl (8.6-10.4); GFR AFRICAN-AMERICAN > 60; GFR NON-AFRICAN AMERICAN > 60
--- NOTE | 2018-06-03 10:11 | CP.PCM.PN ---
<Whitley Watkins P - Last Filed: 06/03/18 20:58> Subjective - Date & Time of Evaluation Date of Evaluation: 06/03/18 Time of Evaluation: 10:10 - Subjective Subjective: PGY-[address] Clay. Patient seen and evaluated at bedside. Patient states she is feeling fine. Her SpO2 is on 95 on 2L nasal cannula. States she no longer feels short of breath on exertion. She is eating well, urinating and moving her bowels regularly. Denies chest pain, lightheadedness, fever, chills, nausea, vomiting, abdominal pain and headache. Patient went for nuclear stress test today. Objective - Vital Signs/Intake and Output Vital Signs (last 24 hours): Temp Pulse Resp BP Pulse Ox 97.8 F 83 20 117/72 95 06/03/18 07:49 06/03/18 07:49 06/03/18 07:49 06/03/18 07:49 06/03/18 07:49 - Medications Medications: Current Medications Albuterol/Ipratropium (Duoneb 3 Mg/0.5 Mg (3 Ml) Ud) 3 ml INH Q4 [facility] Last Admin: 06/03/18 07:57 Dose: 3 ml Aspirin (Aspirin Chewable) 81 mg PO DAILY [facility] Last Admin: 06/02/18 10:33 Dose: 81 mg Carvedilol (Coreg) 3.125 mg PO BID [facility] Last Admin: 06/02/18 18:18 Dose: 3.125 mg Ferric Sodium Gluconate Complex (Ferrlecit) 125 mg IVPB DAILY [facility] Stop: 06/04/18 10:01 Last Admin: 06/02/18 10:33 Dose: 125 mg Folic Acid (Folic Acid) 1 mg PO DAILY [facility] Last Admin: 06/02/18 10:33 Dose: 1 mg Furosemide (Lasix) 40 mg IVP DAILY [facility] Last Admin: 06/02/18 10:33 Dose: 40 mg Heparin Sodium (Porcine) (Heparin) 5,000 units SC Q12 [facility] Last Admin: 06/02/18 21:54 Dose: 5,000 units Lisinopril (Zestril) 2.5 mg PO DAILY [facility] Last Admin: 06/02/18 10:33 Dose: 2.5 mg Multivitamins (Hexavitamin) 1 tab PO DAILY [facility] Last Admin: 06/02/18 10:33 Dose: 1 tab Nicotine (Nicoderm Cq) 1 patch TD DAILY [facility] Last Admin: 06/02/18 10:33 Dose: 1 patch Pantoprazole Sodium (Protonix Ec Tab) 40 mg PO DAILY [facility] Last Admin: 06/02/18 10:33 Dose: 40 mg Thiamine HCl (Vitamin B1 Tab) 100 mg PO DAILY [facility] Last Admin: 06/02/18 10:33 Dose: 100 mg - Labs Labs: 06/03/18 08:33 06/03/18 08:33 - Constitutional Appears: No Acute Distress - Head Exam Head Exam: ATRAUMATIC, NORMOCEPHALIC - Eye Exam Eye Exam: EOMI, Normal appearance - ENT Exam ENT Exam: Mucous Membranes Moist - Neck Exam Neck Exam: Full ROM, Normal Inspection - Respiratory Exam Respiratory Exam: Decreased Breath Sounds (but improved), Clear to Ausculation Bilateral - Cardiovascular Exam Cardiovascular Exam: REGULAR RHYTHM, +S1, +S2 - GI/Abdominal Exam GI & Abdominal Exam: Soft, Normal Bowel Sounds. absent: Guarding, Rigid, Tenderness - Extremities Exam Extremities Exam: Pedal Edema (trace edema bilaterally). absent: Tenderness - Neurological Exam Neurological Exam: Alert, Awake, Oriented x3 - Psychiatric Exam Psychiatric exam: Normal Mood - Skin Skin Exam: Dry, Normal Color, Warm Assessment and Plan - Assessment and Plan (Free Text) Plan: 53 year old female admitted for shortness of breath. Shortness of breath secondary to COPD vs new onset CHF - Cardiology consulted - Dr. Brian -help appreciated - BNP 4960 - > 3810 - CXR: cardiomegaly noted, no effusions noted - ECHO- LVEF 56%. normal LV systolic function. Diastolic dysfunction. mild TR. Normal chamber size. (see full report) - CTA- No pulmonary embolus. Dilated main pulmonary artery likely pulmonary hypertension. Nodular contour of liver likely reflecting cirrhosis. Both upper pole too small to characterize hypodensities scattered throughout the liver ( see full report) - Currently on ASA 81 mg daily, Lisinopril 2.5mg PO daily, carvedilol 3.125 mg PO BID, Lasix 20 mg IVP daily (decreased from 40 06/03) - I &Os, daily weight, fluid restriction, HHD with fluid and salt restriction -05/31: wt 188 lbs, 200mL oral input -06/01: wt 189 lbs, 640mL oral input -06/02: wt 190 lbs, 900mL oral input -06/03: wt 190 lbs, 900mL oral input Tachycardia-improved - On admission: Low 100s, sinus tachycardia on EKG - Risk factor for PE: smoking hx, recently ambulating less, denied recent travel - D-dimer: 408 -CTA- No pulmonary embolus. Dilated main pulmonary artery likely pulmonary hypertension. Nodular contour of liver likely reflecting cirrhosis. Both upper pole too small to characterize hypodensities scattered throughout the liver ( see full report) Venous doppler- no abnormal findings bilaterally COPD - 1-2 PPD / 30 years - Hypercapneic on ABG - expected CO2 retention - Duonebs Q4H - 2L NC -Dr. Orozco, pulmonology consulted, Help appreciated - per conversation 06/02, pt is cleared for discharge from pulmonary standpoint - likely COPD component - D/C w/ Dunonebs Q6 daily & Spiriva once daily. 06/03- decrease lasix and keep on O2. Abnormal liver finding on CTA -CTA- Nodular contour of the liver likely reflecting cirrhosis. Both upper pole too small to characterize hypodensities scattered throughout the liver (see full report) -06/01/18 Abdominal US-Hepatomegaly, Hepatic steatosis without focal liver abnormality. Mild splenomegaly. No acute findings. Iron Deficiency Anemia - Iron panel: iron 20, TIBC 463, %sat 5, ferritin 5.4 - Ferrlecit daily started Alcohol Use Disorder - Cessation encouraged - Aspiration precautions - MV, thiamine, folic daily Tobacco Use Disorder - Smoking Cessation encouraged - Nicotine patch daily Prophylactic Measures - GI PPX: Protonix - DVT PPX: Heparin Q12, SCDs C/I 2/2 BL LE swelling - PT/ OT- recommend pt discharge to [facility] when stable. Stress test done today-normal EF, small apical defect noted, otherwise no significant abnormalities noted. Patient is cleared to be discharged from cardiac standpoint- d/c with aspirin, carvedilol, lasix and statin. Pt's CO2 on CMP noted to be uptrending- As per Dr. Orozco, cut down on lasix and keep patient on O2, no biPAP needed. Also d/c with Dunonebs Q6 daily & Spiriva once daily. f/u case management director for home O2. <Karley Clay V - Last Filed: 06/05/18 21:20> Objective - Vital Signs/Intake and Output Vital Signs (last 24 hours): Temp Pulse Resp BP Pulse Ox 98.2 F 67 20 128/71 96 06/04/18 07:24 06/04/18 08:17 06/04/18 07:24 06/04/18 09:26 06/04/18 07:24 - Labs Labs: 06/04/18 08:02 06/04/18 08:02 Attending/Attestation - Attestation I have personally seen and examined this patient.: Yes I have fully participated in the care of the patient.: Yes I have reviewed all pertinent clinical information, including history, physical exam and plan: Yes Notes (Text): This is late computer entry for 06/03/18. Patient seen, examined, and case discussed with day-time resident. Patient to complete nuclear stress test to distinguish cardiac etiology versus likely pulmonary etiology of dypnea on exertion, shortness of breathe, and hypoxia. Patient ordered for ABG. Assessment/Plan 1) Possible Acute Congestive Heart Failure Exacerbation Assessment/Plan * Monitor on telemetry * Cardiology consulted - Dr. Brian on consult-->help appreciated * continue BB, ACEi, ASA, lasix and f/u echo. * On exam, no JVD noted, no rales noted, decreased breathe sounds, bilateral lower extremity swelling +1 pitting edema up to knees * BNP 4960--> 3810 * CXR: cardiomegaly noted, no effusions noted * ECHO- LVEF 56%. normal LV systolic function. Diastolic dysfunction. mild TR. Normal chamber size. (see full report) * CTA- No pulmonary embolus. Dilated main pulmonary artery likely pulmonary hypertension. Nodular contour of liver likely reflecting cirrhosis. Both upper pole too small to characterize hypodensities scattered throughout the liver ( see full report) * Aspirin 81mg PO daily * Coreg 3.125mg PO BID * Lasix 40mg IV q daily * Lisinopril 2.5mg PO daily * Intake and output * Monitor daily weights * Fluid restriction 2) Sinus Tachycardia Assessment/Plan * Low 100s, sinus tachycardia on EKG * Risk factor for PE: smoking hx, edema * D-dimer: elevated * CTA- No pulmonary embolus. Dilated main pulmonary artery likely pulmonary hypertension. Nodular contour of liver likely reflecting cirrhosis. Both upper pole too small to characterize hypodensities scattered throughout the liver ( see full report) * Venous doppler b/l lateral 3) Suspected COPD Assessment/Plan * Pulmonary (Dr. Orozco) on consult-->help appreciated * 1-2 PPD / 30 years * Decreased breath sounds on exam, faint wheezing RLL * Duonebs Q$H * Hypercapneic on ABG - expected CO2 retention * Duonebs Q6H * Nasal cannula oxygen 2L 4) Iron Deficiency Anemia Assessment/Plan * Iron panel: iron 20, TIBC 463, %sat 5, ferritin 5.4 * Reticulocyte count: 4.8 * Reticulocyte index: 0.56 * Ferrric Sodium Gluconate Compleex 5) Alcohol Use Disorder Assessment/Plan * Cessation encouraged * Seizure, Aspiration precautions * MVI 1 tab PO daily * Thiamine 100mg PO daily * Folic daily 1 mg PO daily * Ativan PRN 6) Tobacco Use Disorder Assessment/Plan * Smoking Cessation encouraged * Nicotine patch daily 7) Abnormal Liver finding on CT Assessment/Plan * CTA- Nodular contour of the liver likely reflecting cirrhosis. Both upper pole too small to characterize hypodensities scattered throughout the liver ( see full report) * 06/01/18 Abdominal US-Hepatomegaly, Hepatic steatosis without focal liver abnormality. Mild splenomegaly. No acute findings. 8) Prophylactic Measures * GI PPX: Protonix 40mg PO daily * DVT PPX: Heparin 5000 units Q12, SCDs C/I 2/2 BL LE swelling * PT/ OT eval
[2018-06-03] MEDS: Multiple Vitamins Tab PO SCH ×2 (11:41→20:48)
[2018-06-03] MEDS: Ferric Sodium Gluconat Complex 62.5 mg/5 ml Vial IVPB SCH ×2 (11:41→20:47)
[2018-06-03] MEDS: Pantoprazole 40 mg EC Tab PO SCH ×2 (11:42→20:48)
[2018-06-03] MEDS ORDERED: Potassium Chloride 20 mEq ER Tab PO ONE ×2 (12:55→17:03)
[2018-06-03 23:34] VITALS: RESP 20
[2018-06-04] MEDS: Albuterol-Ipratrop 3 mg / 0.5 (3 ml) UD INH SCH ×4 (00:24→11:28)
[2018-06-04 07:25] VITALS: TEMP 98.2; O2SAT 96
[2018-06-04 08:55] LABS: BASO % 0.6 % (0.0-2.0); EOS # 0.2 K/uL (0.0-0.7); EOS % 3.2 % (0.0-4.0); HEMOGLOBIN 9.1 g/dL (11.0-16.0); LYMPH # 1.2 K/uL (1.0-4.3); LYMPH % 20.4 % (20.0-40.0); MEAN CELL VOLUME 68.6 fL (81.0-99.0); MEAN CORPUSCULAR HEMOGLOBIN 19.9 pg (27.0-31.0); MEAN CORPUSCULAR HGB CONC 29.1 g/dL (33.0-37.0); MEAN PLATELET VOLUME 9.1 fL (7.2-11.7); MONO # 0.6 K/uL (0.0-0.8); MONO % 9.2 % (0.0-10.0); NEUT # 4.1 K/uL (1.8-7.0); NEUT % 66.6 % (50.0-75.0); NRBC % 0.1 % (0.0-2.0); RBC 4.56 Mil/uL (3.80-5.20); WHITE BLOOD COUNT 6.1 K/uL (4.8-10.8)
[2018-06-04 09:14] LABS: ALBUMIN 2.9 g/dL (3.5-5.0); ALT/SGPT 23 U/L (9-52); AST/SGOT 28 U/L (14-36); BLOOD UREA NITROGEN 9 mg/dL (7-17); CALCIUM 8.5 mg/dl (8.6-10.4); GFR AFRICAN-AMERICAN > 60; GFR NON-AFRICAN AMERICAN > 60
[2018-06-04] MEDS: Multiple Vitamins Tab PO SCH (09:26)
[2018-06-04] MEDS: Pantoprazole 40 mg EC Tab PO SCH (09:27)
[2018-06-04] MEDS: Ferric Sodium Gluconat Complex 62.5 mg/5 ml Vial IVPB SCH (09:27)
[2018-06-04 09:28] VITALS: BP 128/71
[2018-06-04 11:02] VITALS: PULSE 67
--- NOTE | 2018-06-04 13:39 | CP.PCM.DIS ---
<Whitley Watkins P - Last Filed: 06/05/18 00:56> Provider - Provider Date of Admission: 06/01/18 18:43 Attending physician: Karley Clay DO Consults: Dr. Orozco, pulmonology. Dr. Brian, cardiology. Time Spent in preparation of Discharge (in minutes): 0 Diagnosis - Discharge Diagnosis (1) Left against medical advice Status: Acute (2) COPD (chronic obstructive pulmonary disease) Status: Acute (3) Iron deficiency anemia Status: Acute (4) Alcohol use disorder Status: Acute (5) Tobacco use disorder Status: Acute (6) Hepatic steatosis Status: Acute Hospital Course - Lab Results Lab Results: Most Recent Lab Values WBC 6.1 K/uL (4.8-10.8) 06/04/18 08:02 RBC 4.56 Mil/uL (3.80-5.20) 06/04/18 08:02 Hgb 9.1 g/dL (11.0-16.0) L 06/04/18 08:02 Hct 31.2 % (34.0-47.0) L 06/04/18 08:02 MCV 68.6 fL (81.0-99.0) L 06/04/18 08:02 MCH 19.9 pg (27.0-31.0) L 06/04/18 08:02 MCHC 29.1 g/dL (33.0-37.0) L 06/04/18 08:02 RDW 23.0 % (11.5-14.5) H 06/04/18 08:02 Plt Count 183 K/uL (130-400) 06/04/18 08:02 MPV 9.1 fL (7.2-11.7) 06/04/18 08:02 Neut % (Auto) 66.6 % (50.0-75.0) 06/04/18 08:02 Lymph % (Auto) 20.4 % (20.0-40.0) 06/04/18 08:02 [place] % (Auto) 9.2 % (0.0-10.0) 06/04/18 08:02 Eos % (Auto) 3.2 % (0.0-4.0) 06/04/18 08:02 Baso % (Auto) 0.6 % (0.0-2.0) 06/04/18 08:02 Neut # (Auto) 4.1 K/uL (1.8-7.0) 06/04/18 08:02 Lymph # (Auto) 1.2 K/uL (1.0-4.3) 06/04/18 08:02 [place] # (Auto) 0.6 K/uL (0.0-0.8) 06/04/18 08:02 Eos # (Auto) 0.2 K/uL (0.0-0.7) 06/04/18 08:02 Baso # (Auto) 0.0 K/uL (0.0-0.2) 06/04/18 08:02 Differential Comment 05/30/18 17:43 Retic Count 4.8 % (0.5-1.5) H 05/30/18 21:10 D-Dimer, Quantitative 408 ng/mlDDU (0-243) H 05/31/18 01:25 Puncture Site Rba 05/30/18 20:12 pCO2 55 mm/Hg (35-45) H 05/30/18 20:12 pO2 50 mm/Hg (80-100) L 05/30/18 20:12 HCO3 35.4 mmol/L (21-28) H 05/30/18 20:12 ABG pH 7.47 (7.35-7.45) H 05/30/18 20:12 ABG Total CO2 41.7 mmol/L (22-28) H 05/30/18 20:12 ABG O2 Saturation 92.2 % (95-98) L 05/30/18 20:12 ABG Base Excess 13.8 mmol/L (-2.0-3.0) H 05/30/18 20:12 [place] Test Na 05/30/18 20:12 ABG Potassium 3.4 mmol/L (3.6-5.2) L 05/30/18 20:12 A-a O2 Difference 31.0 mm/Hg 05/30/18 20:12 Respiratory Index 0.6 05/30/18 20:12 Sodium 136.0 mmol/l (132-148) 05/30/18 20:12 Chloride 97.0 mmol/L (98-107) L 05/30/18 20:12 Glucose 97 mg/dl (65-105) 05/30/18 20:12 Lactate 1.1 mmol/L (0.7-2.1) 05/30/18 20:12 Liter Flow 0 05/30/18 20:12 FiO2 21.0 % 05/30/18 20:12 Sodium 140 mmol/L (132-148) 06/04/18 08:02 Potassium 3.7 mmol/L (3.6-5.2) 06/04/18 08:02 Chloride 92 mmol/L (98-107) L 06/04/18 08:02 Carbon Dioxide 39 mmol/L (22-30) H 06/04/18 08:02 Anion Gap 13 (10-20) 06/04/18 08:02 BUN 9 mg/dL (7-17) 06/04/18 08:02 Creatinine 0.5 mg/dL (0.7-1.2) L 06/04/18 08:02 Est GFR ( Amer) > 60 06/04/18 08:02 Est GFR (Non-Af Amer) > 60 06/04/18 08:02 Random Glucose 94 mg/dL (65-105) 06/04/18 08:02 Hemoglobin A1c 5.0 % (4.2-6.5) 05/30/18 19:16 Calcium 8.5 mg/dl (8.6-10.4) L 06/04/18 08:02 Phosphorus 3.8 mg/dL (2.5-4.5) 06/03/18 08:33 Magnesium 1.6 mg/dL (1.6-2.3) 06/03/18 08:33 Iron 20 ug/dL (37-170) L 05/30/18 20:31 TIBC 463 ug/dL (250-450) H 05/30/18 20:31 % Saturation 5 (20-55) L 05/30/18 20:31 Ferritin 5.4 ng/mL 05/30/18 21:10 Total Bilirubin 0.8 mg/dL (0.2-1.3) 06/04/18 08:02 AST 28 U/L (14-36) 06/04/18 08:02 ALT 23 U/L (9-52) 06/04/18 08:02 Alkaline Phosphatase 56 U/L (38-126) 06/04/18 08:02 Total Creatine Kinase 23 U/L (30-135) L 05/31/18 10:56 CK-MB (Mass) 0.82 ng/mL (0.0-3.38) 05/31/18 10:56 Troponin I 0.0130 ng/mL (0.00-0.120) 05/31/18 10:56 NT-Pro-B Natriuret Pep 3810 pg/mL (0-900) H 05/31/18 07:10 Total Protein 5.8 g/dL (6.3-8.3) L 06/04/18 08:02 Albumin 2.9 g/dL (3.5-5.0) L 06/04/18 08:02 Globulin 2.9 gm/dL (2.2-3.9) 06/04/18 08:02 Albumin/Globulin Ratio 1.0 (1.0-2.1) 06/04/18 08:02 Triglycerides 66 mg/dL (0-149) 05/30/18 19:17 Cholesterol 82 mg/dL (0-199) 05/30/18 19:17 LDL Cholesterol Direct 50 mg/dL (0-129) 05/30/18 19:17 HDL Cholesterol 17 mg/dL (30-70) L 05/30/18 19:17 Thyroxine (T4) 15.0 ug/dL (5.5-11.0) H 05/30/18 19:17 TSH 3rd Generation 1.15 mIU/L (0.46-4.68) 05/30/18 17:43 Arterial Blood Potassium 3.4 mmol/L (3.6-5.2) L 05/30/18 20:12 - Hospital Course Hospital Course: On admission: This is a 53 year old female with PMHx of Tobacco use and Alcohol use who presents to the ED with gradual, progressive shortness of breath, fatigue, and bilateral lower extremity swelling x 3-4 months. Patient reports she was able to ambulate without assistance or issues to [place] prior to the onset of her symptoms. She gradually noticed she became short of breath when ambulating more than 1 block, walking up 1/2 a flight of stairs, and when she exerts herself. She denied any orthopnea but admits she sleeps inclined or on her side and to daytime sleepiness and fatigue. Patient has not seen a doctor in > 10 years, no prior cardiac workup. Denied any associated fever, chills, headache, chest pain , abdominal pain, n/v/d/c, urinary symptoms, numbness, tingling, or decrease in sensation in upper or lower extremity swelling. Hospital Course: Patient admitted for Shortness of breath. Patient was given diuretics in the ED with improvement of symptoms. It was initially unclear whether symptoms were from a cardiac or pulm eitiology, both pulm, Dr. Orozco, and cardio, Dr. Brian were consulted. Patient was tachycardic on admission with a D-dimer of 408. A CTA and doppler studies were obtained to rule out PE. CTA- No pulmonary embolus. Dilated main pulmonary artery likely pulmonary hypertension. Nodular contour of liver likely reflecting cirrhosis. Both upper pole too small to characterize hypodensities scattered throughout the liver ( see full report) Venous doppler- no abnormal findings bilaterally Patient recieved Duoneb treatments Q4H and ws placed on 4L nasal cannula with improvement of SpO2 and shortness of breath. An echo was obtain which showed the following: ECHO- LVEF 56%. normal LV systolic function. Diastolic dysfunction. mild TR. Normal chamber size. (see full report) A myocardial perfusion scan showed a small apical defect, otherwise normal. Recommendations were made by pulm and PT for home O2. At this time, patient decided to sign out against medical advice despite the risk of worsening symptoms and development of life threatening complications. This is a brief summary, for full record, contact medical records. Discharge Exam - Head Exam Head Exam: ATRAUMATIC, NORMOCEPHALIC - Eye Exam Eye Exam: EOMI, Normal appearance, PERRL - ENT Exam ENT Exam: Mucous Membranes Moist - Neck Exam Neck exam: Normal Inspection - Respiratory Exam Respiratory Exam: Decreased Breath Sounds, Clear to PA & Lateral - Cardiovascular Exam Cardiovascular Exam: REGULAR RHYTHM, +S1, +S2 - GI/Abdominal Exam GI & Abdominal Exam: Normal Bowel Sounds, Soft. absent: Distended, Guarding, Tenderness - Extremities Exam Extremities exam: full ROM, pedal edema - Neurological Exam Neurological exam: Alert, Oriented x3 - Psychiatric Exam Psychiatric exam: Normal Mood - Skin Skin Exam: Dry, Intact, Normal Color, Warm Discharge Plan - Discharge Medications Prescriptions: Albuterol HFA [Ventolin HFA 90 mcg/actuation (8 g)] 1 puff IH Q4H PRN #1 inhaler PRN Reason: Shortness Of Breath Aspirin [Aspirin Chewable] 81 mg PO DAILY #30 chew Carvedilol [Coreg] 3.125 mg PO BID #60 tab Furosemide [Lasix] 20 mg PO DAILY #7 Lisinopril [Zestril] 2.5 mg PO DAILY #30 tab Multivitamins [Hexavitamin] 1 tab PO DAILY #30 tab Nicotine 21 mg/24 hr [Nicoderm Cq] 1 patch TD DAILY #30 patch - Follow Up Plan Condition: FAIR Disposition: AGAINST MEDICAL ADVICE Instructions: Myocardial Perfusion Imaging, Heart Healthy Diet, Chemical Stress Test , Nuclear Heart Testing, Heart Failure Exercise Guide, Heart Failure (DC) Referrals: Tabitha Orozco MD [Staff Provider] - José Brian MD [Staff Provider] - <Karley Clay V - Last Filed: 06/05/18 22:19> Provider - Provider Date of Admission: 06/01/18 18:43 Attending physician: Karley Clay, [facility] Hospital Course - Lab Results Lab Results: Most Recent Lab Values WBC 6.1 K/uL (4.8-10.8) 06/04/18 08:02 RBC 4.56 Mil/uL (3.80-5.20) 06/04/18 08:02 Hgb 9.1 g/dL (11.0-16.0) L 06/04/18 08:02 Hct 31.2 % (34.0-47.0) L 06/04/18 08:02 MCV 68.6 fL (81.0-99.0) L 06/04/18 08:02 MCH 19.9 pg (27.0-31.0) L 06/04/18 08:02 MCHC 29.1 g/dL (33.0-37.0) L 06/04/18 08:02 RDW 23.0 % (11.5-14.5) H 06/04/18 08:02 Plt Count 183 K/uL (130-400) 06/04/18 08:02 MPV 9.1 fL (7.2-11.7) 06/04/18 08:02 Neut % (Auto) 66.6 % (50.0-75.0) 06/04/18 08:02 Lymph % (Auto) 20.4 % (20.0-40.0) 06/04/18 08:02 [place] % (Auto) 9.2 % (0.0-10.0) 06/04/18 08:02 Eos % (Auto) 3.2 % (0.0-4.0) 06/04/18 08:02 Baso % (Auto) 0.6 % (0.0-2.0) 06/04/18 08:02 Neut # (Auto) 4.1 K/uL (1.8-7.0) 06/04/18 08:02 Lymph # (Auto) 1.2 K/uL (1.0-4.3) 06/04/18 08:02 [place] # (Auto) 0.6 K/uL (0.0-0.8) 06/04/18 08:02 Eos # (Auto) 0.2 K/uL (0.0-0.7) 06/04/18 08:02 Baso # (Auto) 0.0 K/uL (0.0-0.2) 06/04/18 08:02 Differential Comment 05/30/18 17:43 Retic Count 4.8 % (0.5-1.5) H 05/30/18 21:10 D-Dimer, Quantitative 408 ng/mlDDU (0-243) H 05/31/18 01:25 Puncture Site Rba 05/30/18 20:12 pCO2 55 mm/Hg (35-45) H 05/30/18 20:12 pO2 50 mm/Hg (80-100) L 05/30/18 20:12 HCO3 35.4 mmol/L (21-28) H 05/30/18 20:12 ABG pH 7.47 (7.35-7.45) H 05/30/18 20:12 ABG Total CO2 41.7 mmol/L (22-28) H 05/30/18 20:12 ABG O2 Saturation 92.2 % (95-98) L 05/30/18 20:12 ABG Base Excess 13.8 mmol/L (-2.0-3.0) H 05/30/18 20:12 Selvin Test Na 05/30/18 20:12 ABG Potassium 3.4 mmol/L (3.6-5.2) L 05/30/18 20:12 A-a O2 Difference 31.0 mm/Hg 05/30/18 20:12 Respiratory Index 0.6 05/30/18 20:12 Sodium 136.0 mmol/l (132-148) 05/30/18 20:12 Chloride 97.0 mmol/L (98-107) L 05/30/18 20:12 Glucose 97 mg/dl (65-105) 05/30/18 20:12 Lactate 1.1 mmol/L (0.7-2.1) 05/30/18 20:12 Liter Flow 0 05/30/18 20:12 FiO2 21.0 % 05/30/18 20:12 Sodium 140 mmol/L (132-148) 06/04/18 08:02 Potassium 3.7 mmol/L (3.6-5.2) 06/04/18 08:02 Chloride 92 mmol/L (98-107) L 06/04/18 08:02 Carbon Dioxide 39 mmol/L (22-30) H 06/04/18 08:02 Anion Gap 13 (10-20) 06/04/18 08:02 BUN 9 mg/dL (7-17) 06/04/18 08:02 Creatinine 0.5 mg/dL (0.7-1.2) L 06/04/18 08:02 Est GFR ( Amer) > 60 06/04/18 08:02 Est GFR (Non-Af Amer) > 60 06/04/18 08:02 Random Glucose 94 mg/dL (65-105) 06/04/18 08:02 Hemoglobin A1c 5.0 % (4.2-6.5) 05/30/18 19:16 Calcium 8.5 mg/dl (8.6-10.4) L 06/04/18 08:02 Phosphorus 3.8 mg/dL (2.5-4.5) 06/03/18 08:33 Magnesium 1.6 mg/dL (1.6-2.3) 06/03/18 08:33 Iron 20 ug/dL (37-170) L 05/30/18 20:31 TIBC 463 ug/dL (250-450) H 05/30/18 20:31 % Saturation 5 (20-55) L 05/30/18 20:31 Ferritin 5.4 ng/mL 05/30/18 21:10 Total Bilirubin 0.8 mg/dL (0.2-1.3) 06/04/18 08:02 AST 28 U/L (14-36) 06/04/18 08:02 ALT 23 U/L (9-52) 06/04/18 08:02 Alkaline Phosphatase 56 U/L (38-126) 06/04/18 08:02 Total Creatine Kinase 23 U/L (30-135) L 05/31/18 10:56 CK-MB (Mass) 0.82 ng/mL (0.0-3.38) 05/31/18 10:56 Troponin I 0.0130 ng/mL (0.00-0.120) 05/31/18 10:56 NT-Pro-B Natriuret Pep 3810 pg/mL (0-900) H 05/31/18 07:10 Total Protein 5.8 g/dL (6.3-8.3) L 06/04/18 08:02 Albumin 2.9 g/dL (3.5-5.0) L 06/04/18 08:02 Globulin 2.9 gm/dL (2.2-3.9) 06/04/18 08:02 Albumin/Globulin Ratio 1.0 (1.0-2.1) 06/04/18 08:02 Triglycerides 66 mg/dL (0-149) 05/30/18 19:17 Cholesterol 82 mg/dL (0-199) 05/30/18 19:17 LDL Cholesterol Direct 50 mg/dL (0-129) 05/30/18 19:17 HDL Cholesterol 17 mg/dL (30-70) L 05/30/18 19:17 Thyroxine (T4) 15.0 ug/dL (5.5-11.0) H 05/30/18 19:17 TSH 3rd Generation 1.15 mIU/L (0.46-4.68) 05/30/18 17:43 Arterial Blood Potassium 3.4 mmol/L (3.6-5.2) L 05/30/18 20:12 - Date & Time of H&P Date of H&P: 05/30/18 Time of H&P: 19:07 Discharge Exam - Respiratory Exam Respiratory Exam: Clear to PA & Lateral, NORMAL BREATHING PATTERN. absent: Stridor - Extremities Exam Extremities exam: pedal edema (trace) Attending/Attestation - Attestation I have personally seen and examined this patient.: Yes I have fully participated in the care of the patient.: Yes I have reviewed all pertinent clinical information, including history, physical exam and plan: Yes Notes (Text): This is late computer entry for 06/05/18. Patient seen, examined, and case discussed with day-time resident. Patient is pending home oxygen given her severe COPD per recommendation by pulmonary. Patient decided later in the day she wanted to leave against medical advice. She is aware she needs cut on her smoking to help preserve lung function. She is aware she struggles to breathe without the oxygen. Case management is aware however will need time to setup patient for home oxygen. Patient does not want to wait. The resident and I have discussed risks of leaving prematurely from hospitalization. Patient is awake, alert, oriented X3 and wants to leave against medical advice. Prescriptions: 1) Aspirin 81mg PO daily 2) Coreg 3.125mg PO BID 3) Lisinopril 2.5mg PO daily 4) Lasix 20mg PO daily 5) Albuterol HFA 1inhaler. This is a summary of patient's hospitalization. Please see EMR for full detail record. Discharge Diagnoses 1) Left Against Medical Advise Not congestive heart Failure per cardiology Pulmonary Hypertension Severe COPD Assessment/Plan * Monitor on telemetry * Cardiology consulted - Dr. Brian on consult-->help appreciated * continue BB, ACEi, ASA, lasix and f/u echo. * Pharm stress test: normal * Echo: 05/30: EF 56% Noromal LV systolic and diastolic function * On exam, no JVD noted, no rales noted, decreased breathe sounds, bilateral lower extremity swelling +1 pitting edema up to knees * BNP 4960--> 3810 * CXR: cardiomegaly noted, no effusions noted * ECHO- LVEF 56%. normal LV systolic function. Diastolic dysfunction. mild TR. Normal chamber size. (see full report) * CTA- No pulmonary embolus. Dilated main pulmonary artery likely pulmonary hypertension. Nodular contour of liver likely reflecting cirrhosis. Both upper pole too small to characterize hypodensities scattered throughout the liver ( see full report) * Aspirin 81mg PO daily * Coreg 3.125mg PO BID * Lasix 40mg IV q daily * Lisinopril 2.5mg PO daily * Intake and output * Monitor daily weights * Fluid restriction 2) Sinus Tachycardia Assessment/Plan * Low 100s, sinus tachycardia on EKG * Risk factor for PE: smoking hx, edema * D-dimer: elevated * CTA- No pulmonary embolus. Dilated main pulmonary artery likely pulmonary hypertension. Nodular contour of liver likely reflecting cirrhosis. Both upper pole too small to characterize hypodensities scattered throughout the liver ( see full report) * Venous doppler b/l lateral 3) Suspected COPD Assessment/Plan * Pulmonary (Dr. Orozco) on consult-->help appreciated * 1-2 PPD / 30 years * Decreased breath sounds on exam, faint wheezing RLL * Duonebs Q$H * Hypercapneic on ABG - expected CO2 retention * Duonebs Q6H * Nasal cannula oxygen 2L * Need home oxygen 4) Iron Deficiency Anemia Assessment/Plan * Iron panel: iron 20, TIBC 463, %sat 5, ferritin 5.4 * Reticulocyte count: 4.8 * Reticulocyte index: 0.56 * Ferrric Sodium Gluconate Compleex 5) Alcohol Use Disorder Assessment/Plan * Cessation encouraged * Seizure, Aspiration precautions * MVI 1 tab PO daily * Thiamine 100mg PO daily * Folic daily 1 mg PO daily * Ativan PRN 6) Tobacco Use Disorder Assessment/Plan * Smoking Cessation encouraged * Nicotine patch daily 7) Abnormal Liver finding on CT Assessment/Plan * CTA- Nodular contour of the liver likely reflecting cirrhosis. Both upper pole too small to characterize hypodensities scattered throughout the liver ( see full report) * 06/01/18 Abdominal US-Hepatomegaly, Hepatic steatosis without focal liver abnormality. Mild splenomegaly. No acute findings. 8) Prophylactic Measures * GI PPX: Protonix 40mg PO daily * DVT PPX: Heparin 5000 units Q12, SCDs C/I 2/2 BL LE swelling * PT/ OT eval
== END 2018-06-04 14:05 | disposition left against medical advice (07) | DRG 127 ==
LOC: C.ER 15:42 → C.9E 18:35 → UNDOADMOB 18:36 → C.9E 18:36 → C.5S 23:49 → OBSVTOIN 06-01 18:43
PROVIDERS: ADMIT Hospitalist; ATTEND Hospitalist
DX: I50.9 Heart failure, unspecified (principal); J44.1 Chronic obstructive pulmonary disease with (acute) exacerbation; K70.30 Alcoholic cirrhosis of liver without ascites; R09.02 Hypoxemia; E87.4 Mixed disorder of acid-base balance; F10.20 Alcohol dependence, uncomplicated; I27.20 Pulmonary hypertension, unspecified; D50.9 Iron deficiency anemia, unspecified; F17.210 Nicotine dependence, cigarettes, uncomplicated